=== PATIENT | male | born 1970 | race Caucasian/White ===

== ENCOUNTER 2024-12-21 09:41 | Emergency (ER) | payer OTHER, SELFPAY ==
[2024-12-21 09:42] VITALS: BP 130/78; PULSE 89; RESP 16; TEMP 36.7; O2SAT 98; BMI 28.6
[2024-12-21 09:54] VITALS: BP 130/78; PULSE 89; RESP 16; TEMP 37; O2SAT 98
--- NOTE | 2024-12-21 09:55 | EX.ED.DYSGE1 ---
HPI History of Present Illness Chief Complaint: Flank Pain Detail of Chief Complaint: Flank pain Informant: patient Narrative Narrative: Patient presents the emergency department complaint flank pain that started yesterday morning. Initially woke him up from sleep. Pain is intermittent and at times will be a 10 out of 10. Currently his pain is about a 3-4 out of 10. Earlier this morning was again severe. He had some nausea with it but no vomiting. Thinks maybe there may have been small amount of blood in his urine yesterday but is not sure. No history of kidney stones. Denies dysuria urgency or frequency. He denies any injury to his back. He has no medical history. Patient states yesterday the pain radiated to the front of the abdomen as well. PFSH PFSH Medical History no medical history Home Medications ?Medication ?Instructions ?Recorded ?Last Taken ?Type hydrocodone-acetaminophen 5-325mg 1 tab PO Q4H PRN PRN Pain 2 days 12/21/24 Unknown Rx 5mg-325mg #10 TABLETS naproxen 500 mg tablet 500 mg PO BID #14 tabs 12/21/24 Unknown Rx Allergy/AdvReac Type Severity Reaction Status Date / Time No Known Allergies Allergy Verified 12/21/24 09:42 Family History no significant family his Surgical History no surgical history Social History Smoking Status: Unknown if ever smoked ROS ROS ED Review of Systems ROS Unobtainable: other Constitutional Constitutional ED: Reports lethargy; Denies chills, fever(s), sweats or weight loss Eyes Eyes: Denies blurry vision, change in vision or diplopia ENT ENT ED: Denies rhinorrhea or sore throat Cardiovascular Cardiovascular: Denies chest pain, orthopnea or racing heartbeat Respiratory/Chest Respiratory/Chest: Denies cough, dyspnea, dyspnea on exertion, orthopnea or sputum Gastrointestinal Gastrointestinal: Reports abdominal pain; Denies diarrhea, nausea or vomiting Genitourinary Genitourinary ED: Denies dysuria, hematuria or urinary frequency Musculoskeletal Musculoskeletal: Reports back pain; Denies arthralgias, myalgias or neck pain Integumentary Denies abscess, Abrasions or rash Neurologic Neurologic: Denies headache(s) or weakness Psychiatric Psychiatric: Denies anxiety, depression or suicidal thoughts Endocrine Endocrinology: Denies polydipsia, polyphagia or polyuria Hematologic/Lymphatic Hematologic/Lymphatic: Denies easy bleeding, easy bruising or lymphadenopathy Allergic/Immunologic Allergic/Immunologic ED: Denies mouth swelling, tongue swelling or urticaria EXAM Physical Exam Const Vital Signs: 12/21/24 09:42 12/21/24 09:54 Temperature 98.0 F 98.6 F Temperature Source Oral Oral Pulse Rate 89 89 Respiratory Rate 16 16 Blood Pressure 130/78 H 130/78 H Blood Pressure Mean 95 95 Pulse Ox 98 98 Oxygen Delivery Method Room Air Room Air Positive well nourished and well developed General Appearance ED: well developed and NAD HEENT Reports TM's clear and moist mucous membranes normocephalic and atraumatic; Negative for trauma or tenderness Tympanic Membrane ED: Yes TM's clear Eyes PERRL and EOMs intact bilaterally General Eye ED: Negative for pale conjunctiva or scleral icterus Neck no lymphadenopathy, supple and no JVD General: Negative for tenderness Chest Wall inspection of chest normal and palpation of chest normal Chest: Negative for tenderness Resp normal respiratory effort and clear to auscultation bilaterally Effort and Inspection: Negative for respiratory distress or pain with movement Auscultation: Negative for rhonchi, wheezes or diminished lung sounds Cardio regular rate, regular rhythm, S1 normal heart sound, S2 normal heart sound and no murmurs Peripheral Pulses: pulses 2+ throughout GI normal to inspection, nondistended, normoactive bowel sounds, soft to palpation, non-distended and no masses GI Narrative: Mild tenderness palpation of the right lower quadrant with some guarding. There is no rebound, rigidity, or peritoneal signs. No mass palpated. Back/Spine no thoracic nor lumbar tenderness Back/Spine Narrative: Patient with CVA tenderness on the right. Extremity normal to inspection General Extremety ED: Negative for edema General Extremity: Negative for edema Neuro oriented x3, CN's II-XII intact bilaterally, no sensory deficits noted and gait normal Sensorium / Orientation: awake, alert, oriented to person, oriented to place and oriented to time Motor Exam: strength 5/5 throughout and strength abnormal Psych mental status grossly normal Skin no rashes or lesions noted and no wounds MDM MDM MDM Narrative Medical decision making narrative: Patient presents with mostly right-sided flank pain but describes some discomfort on the left as well. In the differential would be musculoskeletal back pain versus kidney stone versus UTI versus other acute intra-abdominal process. Patient has not anything for pain currently. I do not establish. CBC with differential, 7.5 with hemoglobin 14 and platelet count 214. Chemistries unremarkable. BUN 11 and creatinine 0.81. Urinalysis showed 0-5 RBCs but no signs of infection. CT scan of the abdomen pelvis shows right urolithiasis with a 4.3 mm stone in the midportion of the right ureter with mild hydroureter and hydronephrosis. Initially patient did not want thing for pain. However he did agree to some IV Toradol. Will send home with urine strainers as well as a prescription for naproxen and a few [place] for pain. Will refer to urology for follow-up. Based on the size of the stone being under 5 mm should typically pass without intervention. He is advised to return if worsening pain, fever, vomiting, or condition should worsen anyway. Have given you referral to urology for follow-up. Lab Data Attestation: I reviewed the patient's lab results. Labs: Laboratory Results - last 24 hr 12/21/24 12/21/24 10:03 10:21 WBC 7.5 RBC 4.39 L Hgb 14.1 Hct 40.7 MCV 92.7 MCH 32.1 H MCHC 34.6 RDW Std Deviation 41.5 RDW Coeff of Cecilia 12.0 Plt Count 214 MPV 9.2 Immature Gran % (Auto) 0.300 Neut % (Auto) 62.1 Lymph % (Auto) 24.1 Stewart % (Auto) 10.0 Eos % (Auto) 2.7 Baso % (Auto) 0.8 Absolute Neuts (auto) 4.7 Absolute Lymphs (auto) 1.80 Nucleated RBC % 0 Sodium 139 Potassium 3.8 Chloride 103 Carbon Dioxide 25.8 Anion Gap 10 BUN 11 Creatinine 0.81 Estim Creat Clear Calc 109.94 Est GFR (MDRD) Non-Af 106 BUN/Creatinine Ratio 13.3 Glucose 133 H Calcium 8.9 Urine Color Yellow Urine Clarity Clear Urine pH 6.0 Ur Specific Robbins 1.015 Urine Protein 15 H Urine Glucose (UA) Normal Urine Ketones 5 H Urine Occult Blood 150 H Urine Nitrite Negative Urine Bilirubin Negative Urine Urobilinogen Normal Ur Leukocyte Esterase Negative Urine RBC 0-5 SEEN Urine WBC 0 SEEN Ur Squamous Epith Cells 0-5 SEEN Urine Bacteria 0 SEEN Urine Mucus 0 SEEN Radiography Diagnostic Testing: Clinical Impression(s) from Imaging Studies Abdomen/Pelvis CT 12/21/24 10:14 IMPRESSION: Hepatomegaly. Nonobstructive bilateral intrarenal calculi. Mild degree of right hydronephrosis and proximal right ureteral dilatation due to a 4.3 mm calculus in the midportion of the right ureter. Reading Location: [place] [id number] Discharge Plan Triage Chief Complaint: Flank Pain ED Provider: Vlad Jimenez Dx/Rx/DC Orders Clinical Impression: Urolithiasis Instructions: ED Kidney Stone with Pain Prescriptions: New hydrocodone-acetaminophen 5-325 mg tablet 1 tab PO Q4H PRN PRN (Reason: Pain) 2 Days Qty: 10 0RF naproxen 500 mg tablet 500 mg PO BID Qty: 14 0RF Primary Care Provider: Care Physician,No Primary Referrals: Jose Lam MD [Med Staff - Active Staff] - 3-5 Days if not improving NOT,DEFINED [Non-Staff] - Print Language: Mosotho Disposition Disposition: Home, Self Care
--- NOTE | 2024-12-21 10:14 | CT_ITS ---
PROCEDURE: ABDOMEN/PELVIS WITHOUT CONT 12/21/2024 REASON FOR EXAM: RIGHT FLANK PAIN TECHNIQUE: Abdomen and pelvis CT without intravenous contrast. Noncontrast technique limits evaluation of the abdominal and pelvic viscera. Coronal and Sagittal reconstruction series were provided. One or more dose reduction techniques were used (e.g., Automated exposure control, adjustment of the mA and/or kV according to patient size, use of iterative reconstruction technique). Dose report: CTDI L volume: 7.91 mGy. DLP: 426.88 PATIENT PREPARATION: Per protocol ORAL CONTRAST TYPE: None. COMPARISON: None FINDINGS: Lung bases: Unremarkable Liver: Hepatomegaly. Gallbladder: Unremarkable Spleen: Unremarkable Pancreas: Normal size. No surrounding inflammation. Adrenals: Unremarkable Kidneys: Mild degree of right hydronephrosis. Tiny nonobstructive bilateral intrarenal calculi more prominent on the right side. Minimally dilated proximal right ureter due to a 4.3 mm calculus in the midportion of the right ureter. Bladder: The urinary bladder is empty. Bowel: Colonic diverticulosis without diverticulitis. Appendix: Unremarkable Lymph nodes: Unremarkable. Vasculature: Mild diffuse atherosclerotic calcifications are noted. Peritoneum / Retroperitoneum: No retroperitoneal lymph nodes. Bones: Unremarkable CT/Abdomen/Pelvis without Cont IMPRESSION: Hepatomegaly. Nonobstructive bilateral intrarenal calculi. Mild degree of right hydronephrosis and proximal right ureteral dilatation due to a 4.3 mm calculus in the midportion of the right ureter. Reading Location: [place] [id number]
[2024-12-21 10:16] LABS: Absolute Neutrophil Count 4.7 X10^3/uL (2.0-7.7); Basophil# 0.06 X10^3/uL; Basophil% 0.8 % (0-1); Eosinophils% 2.7 % (0-5); Hematocrit 40.7 % (40-54); Hemoglobin 14.1 g/dL (13.0-16.5); Lymphocyte % 24.1 % (19-41); Mean Corp Hgb Conc 34.6 g/dL (32-36); Mean Corpuscular Hgb 32.1 pg (27.0-32.0); Mean Corpuscular Volume 92.7 fL (80-94); Mean Platelet Vol. 9.2 fl (6.2-12.0); Monocyte# 0.75 X10^3/uL; NRBC Flagged by Analyzer 0 % (0-5); Neutrophil # 4.65 X10^3/uL (2.7-7.7); Neutrophil % 62.1 % (47-70); Platelet Count 214 K/mm3 (150-450); RBC Distribution Width SD 41.5 fl (35.1-43.9); Red Blood Count 4.39 M/mm3 (4.6-6.2); White Blood Count 7.5 K/mm3 (4.4-11.0)
[2024-12-21 10:30] LABS: Bacteria 0 SEEN /hpf (None Seen); Mucous, Urine 0 SEEN /hpf (<or=2+); White Blood Cells 0 SEEN /hpf (0-5)
[2024-12-21 10:32] LABS: Color, Urine Yellow (Yellow); Glucose, Dipstick Normal (Normal); Ketone-Dipstick 5 mg/dl (Negative); Leukocyte Esterase-Dipstick Negative /ul (Negative); Nitrite-Dipstick Negative (Negative); Occult Blood-Urine 150 /ul (Negative); Protein-Dipstick 15 mg/dl (Negative); Specific Gravity, Urine 1.015 (1.002-1.030); Urine Bilirubin Dipstick Negative (Negative); Urine Clarity Clear (Clear); Urine Urobilinogen Normal (Normal)
[2024-12-21 10:40] LABS: Red Blood Cells-Urine 0-5 SEEN /hpf (0-5); Squamous Epithelial Cells - UA 0-5 SEEN /hpf (0-5)
[2024-12-21 10:44] LABS: Anion Gap 10 (5-15); BUN 11 mg/dL (4-19); BUN/Creat Ratio 13.3 RATIO (10-20); Calcium,Total 8.9 mg/dL (7.6-11.0); Carbon Dioxide 25.8 mmol/L (21.0-32.0); Chloride 103 mmol/L (98-108); Creatinine, Serum 0.81 mg/dL (0.70-1.20); EST Glomerular Filtration Rate 106 (>60); Estimated Creatinine Clearance 109.94 ml/min (50-250); Glucose 133 mg/dL (70-99); Potassium 3.8 mmol/L (3.3-5.1); Sodium Level 139 mmol/L (133-145)
[2024-12-21 10:46] VITALS: BP 130/78; PULSE 89; RESP 16; TEMP 37; O2SAT 98
[2024-12-21] MEDS: Ketorolac 15 MG/ML Vial IV (10:56)
== END 2024-12-21 10:58 | disposition home or self-care (01) ==
PROVIDERS: Emergency Provider Emergency Medicine; Visit Provider Emergency Medicine
DX: N13.2 Hydronephrosis with renal and ureteral calculous obstruction (principal); N13.4 Hydroureter
CPT/HCPCS: 74176; 80048; 81001; 85025; 96374; 99282; A4216

== ENCOUNTER → 2025-01-24 | Outpatient (CLI) | payer OTHER, SELFPAY ==
--- NOTE | 2025-01-24 15:59 | RAD_ITS ---
EXAM: XR Abdomen, 1 View CLINICAL INDICATION: CALCULUS OF URETER TECHNIQUE: Frontal supine view of the abdomen/pelvis. COMPARISON: No relevant prior studies available. FINDINGS: GASTROINTESTINAL TRACT: Fecal retention in the colon consistent with constipation. No dilation. BONES/JOINTS: Unremarkable. No acute fracture. OTHER FINDINGS: 4 mm calculus noted on recent CT dated 12/21/2024 appears to progress to the lower aspect. RAD/Abdomen Single View IMPRESSION: 1. Fecal retention in the colon consistent with constipation. 2. 4 mm calculus noted on recent CT dated 12/21/2024 appears to progress to th e lower aspect. Reading Location[facility]
--- NOTE | 2025-01-24 15:59 | RAD_ITS ---
EXAM: XR Abdomen, 1 View CLINICAL INDICATION: CALCULUS OF URETER TECHNIQUE: Frontal supine view of the abdomen/pelvis. COMPARISON: No relevant prior studies available. FINDINGS: GASTROINTESTINAL TRACT: Fecal retention in the colon consistent with constipation. No dilation. BONES/JOINTS: Unremarkable. No acute fracture. OTHER FINDINGS: 4 mm calculus noted on recent CT dated 12/21/2024 appears to progress to the lower aspect. RAD/Abdomen Single View IMPRESSION: 1. Fecal retention in the colon consistent with constipation. 2. 4 mm calculus noted on recent CT dated 12/21/2024 appears to progress to th e lower aspect. Reading Location[facility]
== END | disposition home or self-care (01) ==
PROVIDERS: Referring Provider Urology; Visit Provider Urology
DX: N20.1 Calculus of ureter (principal)
CPT/HCPCS: 74018

== ENCOUNTER 2025-01-26 13:30 | Day surgery (SDC) | payer OTHER, SELFPAY ==
[2025-01-26] VITALS (8 sets, daily range): BP systolic 105–113; BP diastolic 59–79; PULSE 83–87; RESP 16–18; TEMP 36.1–36.6; O2SAT 93–99; BMI 28.0
--- NOTE | 2025-01-26 07:05 | PCM.HP.STD ---
HPI - General General Date of Service: 01/26/25 Chief Complaint: Right kidney stone kidney stone HPI Narrative CHEPE MADISON, is a 54 M who presents for treatment of the kidney stone with ureteroscopy laser lithotripsy and stent placement on the [facility] Medical History Wears glasses Wears dentures Injury of head and neck Heartburn Shortness of breath on exertion Leg cramps Smoker Home Medications ?Medication ?Instructions ?Recorded ?Last Taken ?Type hydrocodone-acetaminophen 5-325mg 1 tab PO Q4H PRN PRN Pain 2 days 12/21/24 Unknown Rx 5mg-325mg #10 TABLETS naproxen 500 mg tablet 500 mg PO BID #14 tabs 12/21/24 Unknown Rx Allergy/AdvReac Type Severity Reaction Status Date / Time No Known Allergies Allergy Verified 01/25/25 11:48 Surgical History (Updated 01/25/25 @ 11:55 by Shilpa Foster) History of exploratory laparotomy Social History Smoking Status: Current every day smoker tobacco type: cigarettes
--- NOTE | 2025-01-26 13:51 | DCINST_ITS ---
Discharge Instructions DC O2, CPAP, BIPAP needs Home O2 Discharge instructions: No Dressing / Incision Discharge Activity: Return to Normal Activity and May Not Drive (while taking narcotic pain medications.) Dressing / Incision Call your doctor if you observe: Fever of 101 or Higher and Uncontrolled pain Follow Up Care Please Follow Up With: Jose Lam MD When: Call [phone] for an appointment Test Results: Test results from this visit will be discussed in further detail at your follow- up appointment, if applicable. Discharge Plan Admission Primary Reason for Your Visit: right ESWL Attending Provider: Jose Lam Primary Care Provider: Care Physician,No Primary Instructions Print Language: Icelandic Discharge Orders/Prescriptions Prescriptions: New ciprofloxacin HCl [Cipro] 500 mg tablet 500 mg PO BID Qty: 10 0RF oxycodone 5 mg tablet 5 mg PO Q6H PRN (Reason: pain) 3 Days Qty: 14 0RF Continued hydrocodone-acetaminophen 5-325 mg tablet 1 tab PO Q4H PRN PRN (Reason: Pain) 2 Days Qty: 10 0RF naproxen 500 mg tablet 500 mg PO BID Qty: 14 0RF Referrals / Follow Up: Jose Lam MD [Med Staff - Active Staff] - Care Physician,No Primary [Primary Care Provider] - Disposition Disposition (needs filled in before D/C Order can be placed): Home, Self Care
[2025-01-26] MEDS: Lactated Ringers 1,000 ML 15 ML IV (13:54)
--- NOTE | 2025-01-26 13:59 | PRE.ANES_ITS ---
ASA Classification* ASA Classification ASA Classification: 2 Assessment & Plan Anesthesia* Anesthesia Assessment Anesthesia Assessment: Discussed sedation and/or anesthesia options, risks, benefits, and alternatives with patient/parents/legal guardian/POA. Questions invited. The patient/parents/legal guardian/POA seems to understand and agrees to proceed with anesthesia plan. Reviewed the physical assessment, medical history, allergy history and patient home medications list prior to surgery/procedure/anesthetic and documented any changes. Performed airway and anesthesia risk assessments. Anesthesia Type Anesthesia Type: General History Source History Obtained from:: Patient and Chart Anesthesia Focused Assessment* Temperature: 97.1 F Pulse Rate: 86 Blood Pressure: 113/79 Respiratory Rate: 18 Pulse Ox: 97 Oxygen Delivery Method: Room Air Airway Assessment Mouth opens: >3 cm Mallampati Score: III Teeth Condition: Dentures (Full upper dentures are out.) and Missing (Patient has multiple missing teeth on the bottom. Rest are tight.) Neck Range of motion (ROM): Full ROM Labs Anesthesia Preop lab: CBC WBC 7.5 K/mm3 (4.4-11.0) 12/21/24 10:12/21/24 RBC 4.39 M/mm3 (4.6-6.2) L 12/21/24 10:12/21/24 Hgb 14.1 g/dL (13.0-16.5) 12/21/24 10:12/21/24 Hct 40.7 % (40-54) 12/21/24 10:12/21/24 Plt Count 214 K/mm3 (150-450) 12/21/24 10:12/21/24 CHEMISTRY Potassium 3.8 mmol/L (3.3-5.1) 12/21/24 10:12/21/24 Sodium 139 mmol/L (133-145) 12/21/24 10:12/21/24 BUN 11 mg/dL (4-19) 12/21/24 10:12/21/24 Creatinine 0.81 mg/dL (0.70-1.20) 12/21/24 10:12/21/24 Glucose 133 mg/dL (70-99) H 12/21/24 10:12/21/24 COAG Pre-Assessment Diagnosis/Proposed Procedure Planned Operative Procedure(s): RIGHT URETEROSCOPY ESWL Anesthesia History 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 When Was Last Pacemaker Check QUESTION #4 FULL TEXT: You/Your Family Experience fever (hyperthermia) with Anesthesia Last Oral Intake Last Oral intake: Last Oral Intake NPO since 13:00 01/26/25 13:50 Meds taken in AM with sips of No 01/26/25 13:50 water? Meds patient instructed to take am of surgery Any additional information?: Yes NPO since: 13:00 (Patient had 8 ounces of water at 1:00PM) Meds taken in AM with sips of water?: No PONV PONV - aircraft engine technician: PONV - aircraft engine technician Female No 01/25/25 11:49 HX of Motion Sickness No 01/25/25 11:49 HX of N/V After Surgery No 01/25/25 11:49 Non-Smoker No 01/25/25 11:49 Duration of Surgery greater Yes 01/25/25 11:49 than 60 minutes Number of Risk Factors 1 01/25/25 11:49 PONV Score Low Risk 01/25/25 11:49 Height & Weight Height & Weight: Anesthesia: Height & Weight Height 5 ft 7 in 01/26/25 13:50 Weight: 81.2 kg 01/26/25 13:50 Body Mass Index (BMI) 28.0 01/26/25 13:50 Respiratory Assessment Respiratory Assessment - aircraft engine technician: Respiratory Tract Infection Hx - aircraft engine technician Hx Respiratory Tract Infection No 01/25/25 11:49 STOP Sleep Apnea STOP Sleep Apnea - aircraft engine technician: STOP Sleep Apnea - aircraft engine technician Hx Hypertension No 01/25/25 11:49 Hx Sleep Apnea No 01/25/25 11:49 CPAP BIPAP Do you snore loudly (louder No 01/25/25 11:49 than talking or can be heard Do you often feel tired/ No 01/25/25 11:49 fatigued/ sleepy during daytime? Has anyone observed you stop No 01/25/25 11:49 breathing during sleep? STOP Results Negative 01/25/25 11:49 QUESTION #5 FULL TEXT : Do you snore loudly (louder than talking or can be heard through closed doors)? 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 confused, unrespo /Reproduction History /Reproductive History - aircraft engine technician: /Reproductive Hx- aircraft engine technician Hx Now No 01/25/25 11:49 Gestational Age (in weeks): EDC: Hx Hx Para Hx Section SAB No 01/25/25 11:49 Active Medications Active Medications: Current Medications Generic Name Dose Route Start Last Admin Trade Name Freq PRN Reason Stop Dose Admin Acetaminophen 650 mg 01/26/25 13:51 Acetaminophen 325 Mg Tablet PO Q4H PRN PRN Pain Score 1-5 Cefazolin Sodium 2 gm/ Sodium 110 mls @ 200 mls/hr 01/26/25 15:30 Chloride IV 01/26/25 16:02 INTRAOP ONE Lactated Ringer's 1,000 mls @ 15 mls/hr 01/26/25 13:45 01/26/25 13:54 IV 15 mls/hr .Q48H HAYDEE Administration Lactated Ringer's 1,000 mls @ 100 mls/hr 01/26/25 14:00 IV .Q10H HAYDEE Metoclopramide HCl 10 mg 01/26/25 13:51 Metoclopramide 10 Mg/2 Ml Vial IV X1 PRN NAUSEA/VOMITING Ondansetron HCl 4 mg 01/26/25 13:51 Ondansetron 4 Mg/2 Ml Vial IV X1 PRN NAUSEA Oxycodone HCl 5 - 10 mg 01/26/25 13:51 Oxycodone 5 Mg Tablet PO Q6H PRN PRN Pain Score 4-10 PFSH Medical History Wears glasses Wears dentures Injury of head and neck Heartburn Shortness of breath on exertion Leg cramps Smoker Home Medications ?Medication ?Instructions ?Recorded ?Last Taken ?Type hydrocodone-acetaminophen 5-325mg 1 tab PO Q4H PRN PRN Pain 2 days 12/21/24 Unknown Rx 5mg-325mg #10 TABLETS naproxen 500 mg tablet 500 mg PO BID #14 tabs 12/21 Unknown Rx ciprofloxacin HCl 500 mg tablet 500 mg PO BID #10 tabs 01/26/25 Unknown Rx (Cipro) oxycodone 5 mg tablet 5 mg PO Q6H PRN pain 3 days #14 01/26/25 Unknown Rx tabs Allergy/AdvReac Type Severity Reaction Status Date / Time No Known Allergies Allergy Verified 01/26/25 13:50 Surgical History (Updated 01/25/25 @ 11:55 by Shilpa Foster) History of exploratory laparotomy Social History Smoking Status: Current every day smoker tobacco type: cigarettes Review of Systems (Anesthesia) ROS Narrative System reviewed and no additional complaints, except as documented.
--- NOTE | 2025-01-26 14:48 | OP.PCM_ITS ---
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: No Type of Anesthesia: General RN Documented Start/Stop Times: Operation Date: 01/26/25 15:30 Case Time Into Pre-Op 01/26/25 13:40 Out of Pre-Op 01/26/25 14:08 Anesthesia Start 01/26/25 14:12 Into Room 01/26/25 14:12 Procedure Start 01/26/25 14:22 Procedure Start Time: 14:22 Procedure Stop Time: 15:12 Select all DRAINS/GRAFTS/IMPLANTS that apply: None Estimated Blood Loss: None Specimen collected: No Description of surgery: This 54-year-old male presents to the hospital for treatment of a kidney stone KUB was reviewed that there was a possible stone in the distal ureter but then I took him to surgery and then under fluoroscopy I was not convinced that this was a stone the possible phlebolith so the penis was prepped and draped you sterile fashion went in the bladder with the flexible ureteroscope was able to get into the ureter with the wire and then went up the ureter and then as went up the ureter ended up pushing the stone up into the kidney and then the stone over then localized in the kidney I then remove the ureteroscope we pushed the stone the F2 focal point in the machine and then proceeded with shockwave lithotripsy we delivered a total of 2000 shockwaves to the stone and the stone appeared to break up into the small little fragments we did not increase the power too much and then broke the stone into little pieces no stent was placed patient anesthetic was reversed and taken back to the PACU in good condition after successful treatment of the kidney stone with Lithotripsy we did have to use ureteroscopy to locate the the stone since it was hard to locate under fluoroscopy alone. Surgical Findings: Stone found in the kidney and shockwave lithotripsy to the stone Complications Complications: No Admit VTE Documentation VTE Present on Admission: No VTE Mechan Device Prophylaxis: SCD's VTE Pharm Prophylaxis ordered?: No
--- NOTE | 2025-01-26 15:22 | PCM.POST.ANE ---
Anesthesia: Postop Eval I Current Vital Signs Temperature: 97 F Pulse Rate: 84 Blood Pressure: 108/66 Respiratory Rate: 16 Pulse Ox: 99 Oxygen Delivery Method: Room Air Assessment Airway patent: Yes Spontaneous unlabored respirations: Yes Mental status: Awake and Calm nausea: No Vomiting: No Anesthesia Complication: No Fluid Hydration Crystalloid volume administer (ml): 800 Total IV fluid infused: 800 Progress Note Anesthesia document: Postop Eval 1 completed: Yes
[2025-01-26] MEDS: Ketorolac 30 MG/ML Syringe IV (15:32)
--- NOTE | 2025-01-26 19:19 | POSTOPAN2_ITS ---
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 SOCIAL WORKER.[email or web address] Vomiting No 01/26/25 15:23 MARRIAGE AND FAMILY SOCIAL WORKER.[email or web address] Anesthesia Postop Eval I: Fluid Summary Crystalloid volume administer 800 01/26/25 15:23 MARRIAGE AND FAMILY SOCIAL WORKER.[email or web address] (ml) Colloids volume administered ( ml) Blood Product volume administered (ml) Total IV fluid infused 800 01/26/25 15:23 MARRIAGE AND FAMILY SOCIAL WORKER.ALINEOBDhruv Anesthesia Postop Eval I: Summary Notes Anesthesia Complication No 01/26/25 15:23 MARRIAGE AND FAMILY SOCIAL WORKER.[email or web address] Anesthesia Complication Comment: Post-operative progress note Anesthesia: Postop Eval II Evaluation Mental status: Awake and Calm Pain Level: 1 nausea: No Vomiting: No Complications Anesthesia Complication: No
--- NOTE | 2025-01-26 19:19 | PCM.POSTANE2 ---
Anesthesia Postop Eval I Sum Postop Eval Completion status Anesthesia document: Postop Eval 1 completed: Yes Anesthesia Postop Eval I Summary Anesthesia Postop Eval I Summary: Anesthesia Postop Eval I: Assessment Summary Airway patent Yes 01/26/25 15:23 [email or web address] [email or web address] Spontaneous unlabored Yes 01/26/25 15:23 [email or web address] [email or web address] respirations Mental status Awake,Calm 01/26/25 15:23 [email or web address] [email or web address] nausea No 01/26/25 15:23 TRAFFIC [email or web address] Vomiting No 01/26/25 15:23 [email or web address] [email or web address] Anesthesia Postop Eval I: Fluid Summary Crystalloid volume administer 800 01/26/25 15:23 [email or web address] [email or web address] (ml) Colloids volume administered ( ml) Blood Product volume administered (ml) Total IV fluid infused 800 01/26/25 15:23 TRAFFIC [email or web address] Anesthesia Postop Eval I: Summary Notes Anesthesia Complication No 01/26/25 15:23 TRAFFIC [email or web address] Anesthesia Complication Comment: Post-operative progress note Anesthesia: Postop Eval II Evaluation Mental status: Awake and Calm Pain Level: 1 nausea: No Vomiting: No Complications Anesthesia Complication: No
== END 2025-01-26 16:25 | disposition home or self-care (01) ==
LOC: SDC 13:31 → AC 13:33
PROVIDERS: Referring Provider Urology; Visit Provider Urology
PROC: 0TJ98ZZ Inspection of Ureter, Via Natural or Artificial Opening Endoscopic (ICD-10-PCS; CPT 52352; principal; 2025-01-26 15:20)
DX: N20.0 Calculus of kidney (principal); F17.210 Nicotine dependence, cigarettes, uncomplicated; Z79.891 Long term (current) use of opiate analgesic; Z79.899 Other long term (current) drug therapy
CPT/HCPCS: 52352; 00873; C1769; J2405

== ENCOUNTER 2025-02-23 06:24 | Emergency (ER) | payer OTHER, SELFPAY ==
[2025-02-23 06:24] VITALS: BP 133/81; PULSE 83; RESP 16; TEMP 36.4; O2SAT 97; BMI 28.4
--- NOTE | 2025-02-23 06:52 | CT_ITS ---
PROCEDURE: ABDOMEN/PELVIS WITHOUT CONT 02/23/2025 REASON FOR EXAM: LEFT FLANK PAIN TECHNIQUE: ABDOMEN/PELVIS WITHOUT CONT Noncontrast technique limits evaluation of the abdominal and pelvic viscera. Coronal and Sagittal reconstruction series were provided. One or more dose reduction techniques were used (e.g., Automated exposure control, adjustment of the mA and/or kV according to patient size, use of iterative reconstruction technique). RADIATION DOSE SUMMARY: CTDlvol: 7.25 mGy DLP: 387.59 mGycm COMPARISON: CT abdomen and pelvis December 21, 2024 FINDINGS: Lung bases: Clear. Liver: Unremarkable. Gallbladder: Unremarkable. No biliary dilation. Spleen: Unremarkable. Pancreas: Unremarkable. Adrenals: Unremarkable. Kidneys: Coin 2 mm stones at the middle and lower pole of the left kidney. A 4 mm obstructing stone in the left ureter proximally at L3 level causing severe left hydronephrosis. No right hydronephrosis. Bladder: Unremarkable. Reproductive Organs: Unremarkable Bowel: No bowel wall thickening or bowel obstruction. Left and sigmoid colon diverticulosis with no evidence of acute diverticulitis. Appendix: Normal. Lymph nodes: No lymphadenopathy. Vasculature: No aneurysm. Peritoneum / Retroperitoneum: No free air or free fluid. Bones: No acute bony abnormalities. CT/Abdomen/Pelvis without Cont IMPRESSION: Coin 2 mm stones at the middle and lower pole of the left kidney. A 4 mm obstructing stone in the left ureter proximally at L3 level causing xavier re left hydronephrosis. Left sigmoid colon diverticulosis with no evidence of acute diverticulitis. Reading Location: [id number]
[2025-02-23] MEDS: Ketorolac 30 MG/ML Syringe IV (06:58)
[2025-02-23] MEDS: 0.9% Normal Saline (1000mL) 1,000 ML 999 ML IV (06:59)
[2025-02-23 07:07] LABS: Hematocrit 38.7 % (40-54); Hemoglobin 13.3 g/dL (13.0-16.5); Immature Granulocytes Count 0.080 X10^3/uL (0.0-0.0); Mean Corp Hgb Conc 34.4 g/dL (32-36); Mean Corpuscular Volume 94.2 fL (80-94); Mean Platelet Vol. 9.2 fl (6.2-12.0); NRBC Flagged by Analyzer 0 % (0-5); Platelet Count 247 K/mm3 (150-450); RBC Distribution Width CV 11.8 % (11.6-14.6); RBC Distribution Width SD 40.7 fl (35.1-43.9); Red Blood Count 4.11 M/mm3 (4.6-6.2); White Blood Count 11.4 K/mm3 (4.4-11.0)
--- OUTSIDE RECORDS SUMMARY | 2025-02-23 07:10 | XMS RPT_ITS | CCD ---
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 Vlad Jimenez DO Emergency Provider Care Physician, No Primary Primary Care Provider Unavailable Dr. Vlad Jimenez DO Attending Provider Genaro WALLACE, Dr. Jose Freeman Attending Provider Genaro WALLACE, Dr. Jose Freeman Referring Provider Jose Lam Attending Unavailable Jose Lam Referring Unavailable Care Physician, No Primary Primary Care Unava ilable Jose Lam Attending Unavailable Jose Lam Referring Unavailable Care Physician, No Primary Primary Care Unava ilable Vlad Jimenez Attending Unavailable Care Physician, No Primary Primary Care Unava ilable Medications Current Medications Medication Drug Class(es) Dates Sig (Normalized) Sig (Original) acetaminophen 325 mg / HYDROcodone bitartrate 5 mg oral tablet (3 sources) Opioid Agonist Start: 12-21-2024 take 1 tablet by mouth every four hours as needed for pain Hydrocodone-Acetam inophen 5-325 mg tablet Active 1 {tbl} PO EVERY 4 HOURS NEEDED as needed for Pain 10 2 0 December 21, 2024 Urolithiasis Urinary calculus, unspecified ciprofloxacin 500 mg oral tablet (2 sources) Quinolone Antimicrobial Start: 01-26-2025 take 1 tablet by mouth twice daily Ciprofloxacin Hcl (Cipro) 500 mg tablet Active 500 mg PO TWICE A DAY 10 0 January 26, 2025 12:00am naproxen 500 mg oral tablet (3 sources) Nonsteroidal Anti-inflammatory Drug Start: 12-21-2024 take 1 tablet by mouth twice daily Naproxen 500 mg tablet Active 500 mg PO TWICE A DAY 14 0 December 21, 2024 12:00am oxyCODONE hydrochloride 5 mg oral tablet (2 sources) Opioid Agonist Start: 01-26-2025 take 1 tablet by mouth every six hours as needed for pain Oxycodone 5 mg tablet Active 5 mg PO EVERY 6 HOURS as needed for pain 14 3 0 January 26, 2025 Calculus of ureter Calculus of ureter Problems Problem Classification Problem Date Documented Da te Episodic/Chronic Abdominal pain (1 source) Unspecified abdominal pain; Translations: [Unspecified abdominal pain] Onset: 01-25-2025 Episodic Calculus of urinary tract (7 sources) Urolithiasis ; Translations: [Urinary calculus, unspecified] Onset: 01-29-2025 12-21-2024 Episodic Results Test Name Value Interpretation Reference Range Facility Discharge Instructionon 01-09 Discharge Instruction [facility] Medical Records Department [address] [place] [address] Instructions for Home/Discharge Instructions 01/26/25 1351 MR#: [id number] Acct: [id number] Name: CHEPE MADISON Rep #: [id number] : 1970 54 From: Jose Lam MD PCP: Tara Physician,No Primary Status:REG SDC Discharge Instructions DC O2, CPAP, BIPAP needs Home O2 Discharge instructions: No Dressing / Incision Discharge Activity: Return to Normal Activity and May Not Drive (while taking narcotic pain medications.) Dressing / Incision Call your doctor if you observe: Fever of 101 or Higher and Uncontrolled pain Follow Up Care Please Follow Up With: Jose Lam MD When: Call [phone] for an appointment Test Results: Test results from this visit will be discussed in further detail at your follow-up appointment, if applicable. Discharge Plan Admission Primary Reason for Your Visit: right ESWL Attending Provider: Jose Lam Primary Care Provider: Care Physician,No Primary Instructions Print Language: Nepalese Discharge Orders/Prescription s Prescriptions: New ciprofloxacin HCl [Cipro] 500 mg tablet 500 mg PO BID Qty: 10 0RF oxycodone 5 mg tablet 5 mg PO Q6H PRN (Reason: pain) 3 Days Qty: 14 0RF Continued hydrocodone-acetami nophen 5-325 mg tablet 1 tab PO Q4H PRN PRN (Reason: Pain) 2 Days Qty: 10 0RF naproxen 500 mg tablet 500 mg PO BID Qty: 14 0RF Referrals / Follow Up: Jose Lam MD [Med Staff - Active Staff] - Care Physician,No Primary [Primary Care Provider] - Disposition Disposition (needs filled in before D/C Order can be placed): Home, Self Care 01/26/25 1352 Jose Lam MD CC: No Primary Care Physician Signed [facility] MR/POSTOP.ANE 01-26-2025 [facility] Medical Records Department [address] [place] [address] Anesthesia Postop Eval I 01/26/25 1522 MR#: [id number] Acct: [id number] Name: CHEPE MADISON Rep #: [id number] : 1970 54 From: Leidy Rock CRNA PCP: Care Physician,No Primary Status:REG SDC Y Race: C Location: [place] [address] Anesthesia: Postop Eval I Current Vital Signs Temperature: 97 F Pulse Rate: 84 Blood Pressure: 108/66 Respiratory Rate: 16 Pulse Ox: 99 Oxygen Delivery Method: Room Air Assessment Airway patent: Yes Spontaneous unlabored respirations: Yes Mental status: Awake and Calm nausea: No Vomiting: No Anesthesia Complication: No Fluid Hydration Crystalloid volume administer (ml): 800 Total IV fluid infused: 800 Progress Note Anesthesia document: Postop Eval 1 completed: Yes 01/26/25 152 Date Leidy Rock CRNA Cosigner Signature: Date CC: Signed [facility] MR/[id number] 01-26-2025 MR/POSTOPAN2 [facility] Medical Records Department [address] [place] [address] Anesthesia Postop Eval II 01/26/25 1919 MR#: [id number] Acct: [id number] Name: CHEPE MADISON #: [id number] : 1970 54 From: Richie Macedo MD PCP: Care Physician,No Primary Status:[facility] Y Race: C Location: [facility] Anesthesia Postop Eval I Sum Postop Eval Completion status Anesthesia document: Postop Eval 1 completed: Yes Anesthesia Postop Eval I Summary Anesthesia Postop Eval I Summary: Anesthesia Postop Eval I: Assessment Summary Airway patent Yes 01/26/25 15:23 SUPERVISOR/PORT DIRECTOR.SKOBY Spontaneous unlabored Yes 01/26/25 15:23 SUPERVISOR/PORT DIRECTOR.SKOBY respirations Mental status Awake,Calm 01/26/25 15:23 SUPERVISOR/PORT DIRECTOR.SKOBY nausea No 01/26/25 15:23 SUPERVISOR/PORT DIRECTOR.SKOBY Vomiting No 01/26/25 15:23 SUPERVISOR/PORT DIRECTOR.SKOBY Anesthesia Postop Eval I: Fluid Summary Crystalloid volume administer 800 01/26/25 15:23 SUPERVISOR/PORT DIRECTOR.SKOBY (ml) Colloids volume administered ( ml) Blood Product volume administered (ml) Total IV fluid infused 800 01/26/25 15:23 SUPERVISOR/PORT DIRECTOR.SKOBY Anesthesia Postop Eval I: Summary Notes Anesthesia Complication No 01/26/25 15:23 SUPERVISOR/PORT DIRECTOR.SKOBY Anesthesia Complication Comment: Post-operative progress note Anesthesia: Postop Eval II Evaluation Mental status: Awake and Calm Pain Level: 1 nausea: No Vomiting: No Complications Anesthesia Complication: No 01/26/25 191 Date Richie Macedo MD [facility] Signature: Date CC: Signed Normal [facility] Operative Reporton 5 Operative Report [facility] Medical Records Department [address] [place] [address] Operative Report 01/26/25 1448 MR#: [id number] Acct: [id number] Name: CHEPE MADISON Rep #: [id number] : 1970 54 From: Jose Lam MD PCP: Care Physician,No Primary Status:REG [facility] Location: [place] [address] Operative Report (Standard) Operative Information Date of Procedure: 01/26/25 Pre-Operative Diagnosis: Right kidney stone Post-Operative Diagnosis: The same Surgery/Procedure Performed: Right ureteroscopy, right extracorporeal shockwave lithotripsy funeral pre arrangement specialist: No Type of Anesthesia: General RN Documented Start/Stop Times: Operation Date: 01/26/25 15:30 Case Time Into Pre-Op 01/26/25 13:40 Out of Pre-Op 01/26/25 14:08 Anesthesia Start 01/26/25 14:12 Into Room 01/26/25 14:12 Procedure Start 01/26/25 14:22 Procedure Start Time: 14:22 Procedure Stop Time: 15:12 Select all DRAINS/GRAFTS/IMPLA NTS that apply: None Estimated Blood Loss: None Specimen collected: No Description of surgery: This 54-year-old male presents to the hospital for treatment of a kidney stone KUB was reviewed that there was a possible stone in the distal ureter but then I took him to surgery and then under fluoroscopy I was not convinced that this was a stone the possible phlebolith so the penis was prepped and draped you sterile fashion went in the bladder with the flexible ureteroscope was able to get into the ureter with the wire and then went up the ureter and then as went up the ureter ended up pushing the stone up into the kidney and then the stone over then localized in the kidney I then remove the ureteroscope we pushed the stone the F2 focal point in the machine and then proceeded with shockwave lithotripsy we delivered a total of 2000 shockwaves to the stone and the stone appeared to break up into the small little fragments we did not increase the power too much and then broke the stone into little pieces no stent was placed patient anesthetic was reversed and taken back to the PACU in good condition after successful treatment of the kidney stone with Lithotripsy we did have to use ureteroscopy to locate the the stone since it was hard to locate under fluoroscopy alone. Surgical Findings: Stone found in the kidney and shockwave lithotripsy to the stone Complications Complications: No Admit VTE Documentation VTE Present on Admission: No VTE Mechan Device Prophylaxis: SCD's VTE Pharm Prophylaxis ordered?: No 01/26/25 1512 Cosigner Signature (if applicable): CC: Dr. Jose Lam MD; No Primary Care Physician Signed Normal [facility] Abdomen Single Viewon 2024 Abdomen Single View [facility] Imaging Services [address] [place] [address] Abdomen Single View MR#: [id number] Acct: [id number] Name: CHEPE MADISON Doris Rep #: [id number] : 1970 M 54 From: Claus Rene MD PCP: Care Physician,No Primary Status: REG CLI Study: Abdomen Single View Date of Exam: 01/24/25 Exam# [id number] Ordering Dr: Jose Lam MD EXAM: XR Abdomen, 1 View CLINICAL INDICATION: CALCULUS OF URETER TECHNIQUE: Frontal supine view of the abdomen/pelvis. COMPARISON: No relevant prior studies available. FINDINGS: GASTROINTESTINAL TRACT: Fecal retention in the colon consistent with constipation. No dilation. BONES/JOINTS: Unremarkable. No acute fracture. OTHER FINDINGS: 4 mm calculus noted on recent CT dated 12/21/2024 appears to progress to the lower aspect. RAD/Abdomen Single View IMPRESSION: 1. Fecal retention in the colon consistent with constipation. 2. 4 mm calculus noted on recent CT dated 12/21/2024 appears to progress to the lower aspect. Reading Location: [facility] CC: Dr. Jose Lam MD; No Primary Care Physician Country Director: Signed Normal [facility] Abdomen/Pelvis without Conto n 12-21-2024 Abdomen/Pelvis without Cont [facility] Imaging Services [address] [place] [address] Abdomen/Pelvis without Cont MR#: [id number] Acct: [id number] Name: CHEPE MADISON Rep #: [id number] : 1970 M 54 From: Javier farris MD PCP: NOT,DEFINED Status: PRE ER Study: Abdomen/Pelvis without Cont Date of Exam: 12/10 09/05 Exam# [id number] Ordering Dr: Vlad Jimenez DO PROCEDURE: ABDOMEN/PELVIS WITHOUT CONT 12/21/2024 REASON FOR EXAM: RIGHT FLANK PAIN TECHNIQUE: Abdomen and pelvis CT without intravenous contrast. Noncontrast technique limits evaluation of the abdominal and pelvic viscera. Coronal and Sagittal reconstruction series were provided. One or more dose reduction techniques were used (e.g., Automated exposure control, adjustment of the mA and/or kV according to patient size, use of iterative reconstruction technique). Dose report: CTDI L volume: 7.91 mGy. DLP: 426.88 PATIENT PREPARATION: Per protocol ORAL CONTRAST TYPE: None. COMPARISON: None FINDINGS: Lung bases: Unremarkable Liver: Hepatomegaly. Gallbladder: Unremarkable Spleen: Unremarkable Pancreas: Normal size. No surrounding inflammation. Adrenals: Unremarkable Kidneys: Mild degree of right hydronephrosis. Tiny nonobstructive bilateral intrarenal calculi more prominent on the right side. Minimally dilated proximal right ureter due to a 4.3 mm calculus in the midportion of the right ureter. Bladder: The urinary bladder is empty. Bowel: Colonic diverticulosis without diverticulitis. Appendix: Unremarkable Lymph nodes: Unremarkable. Vasculature: Mild diffuse atherosclerotic calcifications are noted. Peritoneum / Retroperitoneum: No retroperitoneal lymph nodes. Bones: Unremarkable CT/Abdomen/Pelvis without Cont IMPRESSION: Hepatomegaly. Nonobstructive bilateral intrarenal calculi. Mild degree of right hydronephrosis and proximal right ureteral dilatation due to a 4.3 mm calculus in the midportion of the right ureter. Reading Location: [place] [address] CC: DEFINED NOT; Dr. Vlad Jimenez DO Country Director: Signed Normal [facility] Absolute lymphocyte countOrd ered By: Vlad Jimenez on 12-21-2024 Lymphocytes Auto (Unsp spec) [#/Vol] 1.80 10*3/uL 0.83-4.[address] [facility] Absolute neutrophil countOrd ered By: Vlad Jimenez on 12-21-2024 Neutrophils (Bld) [#/Vol] 4.7 10*3/uL 2.0-7.[address] [facility] Anion gap in Serum or Plasma Ordered By: Vlad Jimenez on 06-12-2025 Anion gap [Moles/Vol] 10 mmol/L 5-15 [facility] Automated lymphocyte count a s percentage of total leukocytesOrdered By: Remus Ungkedar on 12-21-2024 Lymphocytes/100 WBC Auto (Unsp spec) 24.1 % - [facility] BUN/creatinine ratioOrdered By: Remus Ungur on 12-21-2024 Urea nitrogen/Creatinine [Mass ratio] 13.3 mg/mg 04-[address] [facility] Basic Metabolic Profile (BMP )on 12-21-2024 BUN/CRE 13.3 RATIO Normal 04-[address] [facility] Comment on above: Performed By: #### L 100.0100, L500.2500 #### [facility] Laboratory [address] [place], [address] Calcium [Mass/Vol] 8.9 mg/dL Normal 7.6-11.0 [facility] Comment on above: Performed By: #### L 100.0100, L500.2500 #### [facility] [address] [place], [address] Chloride [Moles/Vol] 103 mmol/L Normal 98-108 [facility] Comment on above: Performed By: #### L 100.0100, L500.2500 #### [facility] [address] [place], [address] CO2 [Moles/Vol] 25.8 mmol/L Normal 21.0-32.[address] [facility] Comment on above: Performed By: #### L 100.0100, L500.2500 #### [facility] [address] [place], [address] Creatinine [Mass/Vol] 0.81 mg/dL Normal 0.70-1.20 [facility] Comment on above: Performed By: #### L 100.0100, L500.2500 #### [facility] [address] [place], [address] ECRCL 109.94 ml/min Normal 50-[address] [facility] Comment on above: Performed By: #### L 100.0100, L500.2500 #### [facility] [address] [place], [address] GAP 10 Normal 5-[address] [facility] Comment on above: Performed By: #### L 100.0100, L500.2500 #### [facility] [address] [place], [address] GFR/1.73 sq M.predicted among non-blacks MDRD (S/P/Bld) [Vol rate/Area] 106 mL/min/{1.73_m2} Normal >[address] [facility] Comment on above: Result Comment: mL/m in/1.73m2 CKD-EPI Creatinine Equation (2020) Performed By: #### L 100.0100, L500.2500 #### [facility] [address] [place], [address] Glucose [Mass/Vol] 133 mg/dL High 70-99 [facility] Comment on above: Performed By: #### L 100.0100, L500.2500 #### [facility] [address] [place], [address] Potassium [Moles/Vol] 3.8 mmol/L Normal 3.3-5.1 [facility] Comment on above: Performed By: #### L 100.0100, L500.2500 #### [facility] [address] [place], [address] Sodium [Moles/Vol] 139 mmol/L Normal 133-145 [facility] Comment on above: Performed By: #### L 100.0100, L500.2500 #### [facility] [address] [place], [address] Urea nitrogen [Mass/Vol] 11 mg/dL Normal 4-[address] [facility] Comment on above: Performed By: #### L 100.0100, L500.2500 #### [facility] [address] [place], [address] Basophil percentageOrdered B y: Vlad Jimenez on 12-21-2024 Basophils/100 WBC (Bld) 0.8 % 0-1 [facility] Bilirubin Test strip Ql (U)O rdered By: Vlad Jimenez on 12-21-2024 Bilirubin Ql (U) Negative Negative [facility] CBC W/Diff, Automatedon 12-10 Absolute Lymph 1.80 X10 3/uL Normal 0.83-4.[address] [facility] Comment on above: Performed By: #### L 100.0100, L500.2500 #### [facility] [address] [place], [address] Absolute Neut 4.7 X10 3/uL Normal 2.0-7.[address] [facility] Comment on above: Performed By: #### L 100.0100, L500.2500 #### [facility] [address] [place], [address] Basophils/100 WBC (Bld) 0.8 % Normal 0-1 [facility] Comment on above: Performed By: #### L 100.0100, L500.2500 #### [facility] [address] [place], [address] Eosinophils/100 WBC (Bld) 2.7 % Normal 0-[address] [facility] Comment on above: Performed By: #### L 100.0100, L500.2500 #### [facility] [address] [place], [address] Erythrocyte distribution width (RBC) [Ratio] 12.0 % Normal 11.6-14.[address] [facility] Comment on above: Performed By: #### L 100.0100, L500.2500 #### [facility] [address] [place], [address] Hematocrit (Bld) [Volume fraction] 40.7 % Normal 40-[address] [facility] Comment on above: Performed By: #### L 100.0100, L500.2500 #### [facility] [address] [place], [address] Hemoglobin (Bld) [Mass/Vol] 14.1 g/dL Normal 13.0-16.[address] [facility] Comment on above: Performed By: #### L 100.0100, L500.2500 #### [facility] [address] [place], [address] IG% 0.300 Normal 0.0-0.[address] [facility] Comment on above: Result Comment: IG% - Immature Granulocytes (promyelocytes, myelocytes and metamyelocytes) > 1% indicates that a LEFT SHIFT is Present. Performed By: #### L 100.0100, L500.2500 #### [facility] [address] [place], [address] Lymphocytes/100 WBC (Bld) 24.1 % Normal 19-[address] [facility] Comment on above: Performed By: #### L 100.0100, L500.2500 #### [facility] [address] [place], [address] MCH (RBC) [Entitic mass] 32.1 pg High 27.0-32.[address] [facility] Comment on above: Performed By: #### L 100.0100, L500.2500 #### [facility] [address] [place], [address] MCHC (RBC) [Mass/Vol] 34.6 g/dL Normal 32-36 [facility] Comment on above: Performed By: #### L 100.0100, L500.2500 #### [facility] [address] [place], [address] MCV (RBC) [Entitic vol] 92.7 fL Normal 80-94 W [facility] Comment on above: Performed By: #### L 100.0100, L500.2500 #### [facility] [address] [place], [address] Monocytes/100 WBC (Bld) 10.0 % Normal 0-10 W [facility] Comment on above: Performed By: #### L 100.0100, L500.2500 #### [facility] [address] [place], [address] Neutrophils/100 WBC (Bld) 62.1 % Normal 47-[address] [facility] Comment on above: Performed By: #### L 100.0100, L500.2500 #### [facility] [address] [place], [address] Nucleated RBC (Bld) [#/Vol] 0 10*3/uL Normal 0-[address] [facility] Comment on above: Performed By: #### L 100.0100, L500.2500 #### [facility] [address] [place], [address] Platelet mean volume (Bld) [Entitic vol] 9.2 fL Normal 6.2-12.[address] [facility] Comment on above: Performed By: #### L 100.0100, L500.2500 #### [facility] [address] [place], [address] Platelets (Bld) [#/Vol] 214 10*3/uL Normal 150-[address] [facility] Comment on above: Performed By: #### L 100.0100, L500.2500 #### [facility] [address] [place], [address] RBC (Bld) [#/Vol] 4.39 10*6/uL Low 4.6-6.2 [facility] Comment on above: Performed By: #### L 100.0100, L500.2500 #### [facility] [address] [place], [address] RDW SD 41.5 fl Normal 35.1-43.[address] [facility] Comment on above: Performed By: #### L 100.0100, L500.2500 #### [facility] [address] [place], [address] WBC (Bld) [#/Vol] 7.5 10*3/uL Normal 4.4-11.0 [facility] Comment on above: Performed By: #### L 100.0100, L500.2500 #### [facility] [address] [place], [address] Carbon dioxide, total [Moles /volume] in Central venous bloodOrdered By: Vlad Jimenez on 12-21-2024 CO2 [Moles/Vol] 25.8 mmol/L 21.0-32.[address] [facility] Chloride assayOrdered By: Shayy Jimenez on 12-21-2024 Chloride [Moles/Vol] 103 mmol/L 98-108 [facility] Emergency Department Summary on 12-21-2024 Emergency Department Summary [facility] Medical Records Department [address] [place] [address] Emergency Department Summary 12/21/24 MR#: [id number] Acct: [id number] Name: CHEPE MADISON Rep #: [id number] : 1970 54 From: Vlad Jimenez DO PCP: Care Physician,No Primary Status:DEP ER Location: ED HPI History of Present Illness Chief Complaint: Flank Pain Detail of Chief Complaint: Flank pain Informant: patient Narrative Narrative: Patient presents the emergency department complaint flank pain that started yesterday morning. Initially woke him up from sleep. Pain is intermittent and at times will be a 10 out of 10. Currently his pain is about a 3-4 out of 10. Earlier this morning was again severe. He had some nausea with it but no vomiting. Thinks maybe there may have been small amount of blood in his urine yesterday but is not sure. No history of kidney stones. Denies dysuria urgency or frequency. He denies any injury to his back. He has no medical history. Patient states yesterday the pain radiated to the front of the abdomen as well. PFSH PFSH Medical History no medical history Home Medications ???Medication ???Instructions ???Recorded ???Last Taken ???Type hydrocodone-acetami nophen 5-325mg 1 tab PO Q4H PRN PRN Pain 2 days 12/21/24 Unknown Rx 5mg-325mg #10 TABLETS naproxen 500 mg tablet 500 mg PO BID #14 tabs 12/21/24 Un known Rx Allergy/AdvReac Type Severity Reaction Status Date / Time No Known Allergies Allergy Verified 12/21/24 09:42 Family History no significant family his Surgical History no surgical history Social History Smoking Status: Unknown if ever smoked ROS ROS ED Review of Systems ROS Unobtainable: other Constitutional Constitutional ED: Reports lethargy; Denies chills, fever(s), sweats or weight loss Eyes Eyes: Denies blurry vision, change in vision or diplopia ENT ENT ED: Denies rhinorrhea or sore throat Cardiovascular Cardiovascular: Denies chest pain, orthopnea or racing heartbeat Respiratory/Chest Respiratory/Chest: Denies cough, dyspnea, dyspnea on exertion, orthopnea or sputum Gastrointestinal Gastrointestinal: Reports abdominal pain; Denies diarrhea, nausea or vomiting Genitourinary Genitourinary ED: Denies dysuria, hematuria or urinary frequency Musculoskeletal Musculoskeletal: Reports back pain; Denies arthralgias, myalgias or neck pain Integumentary Denies abscess, Abrasions or rash Neurologic Neurologic: Denies headache(s) or weakness Psychiatric Psychiatric: Denies anxiety, depression or suicidal thoughts Endocrine Endocrinology: Denies polydipsia, polyphagia or polyuria Hematologic/Lymphat ic Hematologic/Lymphat ic: Denies easy bleeding, easy bruising or lymphadenopathy Allergic/Immunologi c Allergic/Immunologi c ED: Denies mouth swelling, tongue swelling or urticaria EXAM Physical Exam Const Vital Signs: 12/21/24 09:42 12/21/24 09:54 Temperature 98.0 F 98.6 F Temperature Source Oral Oral Pulse Rate 89 89 Respiratory Rate 16 16 Blood Pressure 130/78 H 130/78 H Blood Pressure Mean 95 95 Pulse Ox 98 98 Oxygen Delivery Method Room Air Room Air Positive well nourished and well developed General Appearance ED: well developed and NAD HEENT Reports TM's clear and moist mucous membranes normocephalic and atraumatic; Negative for trauma or tenderness Tympanic Membrane ED: Yes TM's clear Eyes PERRL and EOMs intact bilaterally General Eye ED: Negative for pale conjunctiva or scleral icterus Neck no lymphadenopathy, supple and no JVD General: Negative for tenderness Chest Wall inspection of chest normal and palpation of chest normal Chest: Negative for tenderness Resp normal respiratory effort and clear to auscultation bilaterally Effort and Inspection: Negative for respiratory distress or pain with movement Auscultation: Negative for rhonchi, wheezes or diminished lung sounds Cardio regular rate, regular rhythm, S1 normal heart sound, S2 normal heart sound and no murmurs Peripheral Pulses: pulses 2+ throughout GI normal to inspection, nondistended, normoactive bowel sounds, soft to palpation, non-distended and no masses GI Narrative: Mild tenderness palpation of the right lower quadrant with some guarding. There is no rebound, rigidity, or peritoneal signs. No mass palpated. Back/Spine no thoracic nor lumbar tenderness Back/Spine Narrative: Patient with CVA tenderness on the right. Extremity normal to inspection General Extremety ED: Negative for edema General Extremity: Negative for edema Neuro oriented x3, CN's II-XII intact bilaterally, no sensory deficits noted and gait normal Sensorium / Orientation: awake, alert, oriented to person, oriented to place and oriented to time Motor Exam: strength 5/5 throughout and (more content not included)... Normal [facility] Eosinophil percentageOrdered By: Vlad Jimenez on 12-21-2024 Eosinophils/100 WBC (Bld) 2.7 % 0-[address] [facility] Erythrocyte distribution wid th ratioOrdered By: Vlad Jimenez on 12-21-2024 Erythrocyte distribution width (RBC) [Ratio] 12.0 % 11.6-14.[address] [facility] Erythrocyte distribution wid th standard deviationOrdered By: Vlad Jimenez on 12-21-2024 Erythrocyte distribution width (RBC) [Ratio] 41.5 fl 35.1-43.[address] [facility] Glomerular filtration rate ( GFR) estimation/1.73 sq m using serum, plasma, or whole bOrdered By: Vlad Jimenez on 12-21-2024 GFR/1.73 sq M.predicted among non-blacks MDRD (S/P/Bld) [Vol rate/Area] 106 mL/min/{1.73_m2} >[address] [facility] Comment on above: mL/min/1.73m2 CKD-EP I Creatinine Equation (2020) Hematocrit Auto (Bld) [Volum e fraction]Ordered By: Vlad Jimenez on 12-21-2024 Hematocrit (Bld) [Volume fraction] 40.7 % 40-[address] [facility] Hemoglobin measurementOrdere d By: Vlad Jimenez on 12-21-2024 Hemoglobin (Bld) [Mass/Vol] 14.1 g/dL 13.0-16.[address] [facility] Immature granulocytes/100 WB C Auto (Bld)Ordered By: Vlad Jimenez on 12-21-2024 Immature granulocytes/100 WBC (Bld) 0.300 % 0.0-0.[address] [facility] Comment on above: IG% - Immature Granu locytes (promyelocytes, myelocytes and metamyelocytes) > 1% indicates that a LEFT SHIFT is Present. Ketones Test strip Ql (U)Ord ered By: Vlad Jimenez on 12-21-2024 Ketones Ql (U) 5 mg/dl High Negative [facility] MCV (mean corpuscular volume ) determinationOrdered By: Vlad Jimenez on 12-21-2024 MCV (RBC) [Entitic vol] 92.7 fL 80-94 W [facility] Mean corpuscular hemoglobin (MCH) determinationOrdered By: Vlad Jimenez on 12-21-2024 MCH (RBC) [Entitic mass] 32.1 pg High 27.0-32.[address] [facility] Mean corpuscular hemoglobin concentration (MCHC) determinationOrdered By: Vlad Jimenez on 12-21-2024 MCHC (RBC) [Mass/Vol] 34.6 g/dL 32-36 [facility] Mean platelet volume determi nationOrdered By: Vlad Jimenez on 12-21-2024 Platelet mean volume (Bld) [Entitic vol] 9.2 fL 6.2-12.[address] [facility] Microscopic analysis of urin e for red blood cells (RBC)Ordered By: Vlad Jimenez on 12-21-2024 Microscopic analysis of urine for red blood cells (RBC) 0-5 SEEN /hpf 0-[address] [facility] Monocyte percentageOrdered B y: Vlad Jimenez on 12-21-2024 Monocytes/100 WBC (Bld) 10.0 % 0-10 W [facility] Mucus LM Ql (Urine sed)Order ed By: Vlad Jimenez on 12-21-2024 Mucus Ql (Urine sed) 0 SEEN /hpf [facility] Neutrophil percentageOrdered By: Vlad Jimenez on 12-21-2024 Neutrophils/100 WBC (Bld) 62.1 % 47-[address] [facility] Nitrite Test strip Ql (U)Ord ered By: Vlad Jimenez on 12-21-2024 Nitrite Ql (U) Negative Negative [facility] Nucleated red blood cell per centageOrdered By: Vlad Jimenez on 12-21-2024 Nucleated RBC/100 WBC (Bld) [Ratio] 0 % 0-[address] [facility] Platelet countOrdered By: Shayy Jimenez on 12-21-2024 Platelets (Bld) [#/Vol] 214 10*3/uL 150-[address] [facility] Potassium measurement (mass/ volume)Ordered By: Vlad Jimenez on 12-21-2024 Potassium (Unsp spec) [Mass/Vol] 3.8 mmol/L 3.3-5.[address] [facility] Protein Test strip Ql (U)Ord ered By: Vlad Jimenez on 12-21-2024 Protein Ql (U) 15 mg/dl High Negative [facility] RBC Auto (Bld) [#/Vol]Ordere d By: Vlad Jimenez on 12-21-2024 RBC (Bld) [#/Vol] 4.39 10*6/uL Low 4.6-6.2 [facility] Serum creatinine measurement (mass/volume)Ordered By: Vlad Jimenez on 12-21-2024 Creatinine [Mass/Vol] 0.81 mg/dL 0.70-1.20 [facility] Serum glucose measurement (m ass/volume)Ordered By: Vlad Jimenez on 12-21-2024 Glucose [Mass/Vol] 133 mg/dL High 70-99 [facility] Serum or plasma calcium marlen urement (mass/volume)Ordered By: Vlad Jimenez on 12-21-2024 Calcium [Mass/Vol] 8.9 mg/dL 7.6-11.0 [facility] Serum or plasma urea nitroge n measurement (mass/volume)Ordered By: Vlad Jimenez on 12-21-2024 Urea nitrogen [Mass/Vol] 11 mg/dL 4-[address] [facility] Sodium levelOrdered By: Negra Jimenez on 12-21-2024 Sodium [Moles/Vol] 139 mmol/L 133-145 [facility] Squamous epithelial cells de tection in urine sediment by light microscopyOrdered By: Vlad Jimenez on 12-21-2024 Epithelial cells.squamous LM Ql (Urine sed) 0-5 SEEN /hpf 0-[address] [facility] Urinalysis, Completeon 12-21 EPI,SQUAMOUS 0-5 SEEN Normal 0-[address] [facility] Comment on above: Order Comment: CLEAN CATCH Performed By: #### L 400.0001 #### [facility] [address] [place], [address] RBC 0-5 SEEN Normal 0-[address] [facility] Comment on above: Order Comment: CLEAN CATCH Performed By: #### L 400.0001 #### [facility] [address] [place], [address] BACTERIA 0 SEEN Normal None Seen [facility] Comment on above: Order Comment: CLEAN CATCH Performed By: #### L 400.0001 #### [facility] [address] [place], [address] Mucus Ql (Urine sed) 0 SEEN Normal [facility] Comment on above: Order Comment: CLEAN CATCH Performed By: #### L [id number] #### [facility] [address] [place], [address] WBC 0 SEEN Normal 0-[address] [facility] Comment on above: Order Comment: CLEAN CATCH Performed By: #### L 400.0001 #### [facility] [address] [place], [address] Urine clarityOrdered By: Minoo Jimenez on 12-21-2024 Clarity (U) Clear Clear [facility] Urine color determinationOrd ered By: Vlad Jimenez on 12-21-2024 Color (U) Yellow Yellow [facility] Urine glucose detectionOrder ed By: Vlad Jimenez on 12-21-2024 Glucose Ql (U) Normal mg/dl Normal [facility] Urine leukocyte esterase det ection by dipstickOrdered By: Vlad Jimenez on 12-21-2024 Leukocyte esterase Test strip Ql (U) Negative Negative [facility] Urine pHOrdered By: Vlad Rodriguez gur on 12-21-2024 pH (U) 6.0 [pH] 5.0 - 8.[address] [facility] Urine sediment bacteria coun t by microscopy (number/high power field)Ordered By: Vlad Jimenez on 12-21-2024 Bacteria LM.HPF (Urine sed) [#/Area] 0 /[HPF] None Seen [facility] Urine specific gravity measu rementOrdered By: Vlad Jimenez on 12-21-2024 Specific gravity (U) [Rel density] 1.015 1.002-1.[address] [facility] Urine urobilinogen measureme ntOrdered By: Vlad Jimenez on 12-21-2024 Urobilinogen Ql (U) Normal mg/dl Normal [facility] White blood cell (WBC) count Ordered By: Vlad Jimenez on 12-21-2024 WBC (Bld) [#/Vol] 7.5 10*3/uL 4.4-11.0 [facility] White blood cell countOrdere d By: Vlad Jimenez on 12-21-2024 White blood cell count 0 SEEN /hpf 0-5 [facility] Vital Signs Date Time Vital Sign Value Performing Clinician Faci lity 01-26-2025 15:35-0400 Body temperature 97.8 [degF] Dr. Vlad Jimenez DO Work Phone: [facility] 01-26-2025 15:35-0400 Diastolic blood pressure 59 mm[Hg] Dr. Vlad Jimenez DO Work Phone: [facility] 01-26-2025 15:35-0400 Heart rate 84 /min Dr. Vlad Jimenez DO Work Phone: [facility] 01-26-2025 15:35-0400 Respiratory rate 16 /min Dr. Vlad Jimenez DO Work Phone: [phone] [place] [address] 01-26-2025 15:35-0400 SaO2% (BldA) [Mass fraction] 94 % Dr. Vlad Jimenez DO Work Phone: [phone] [place] [address] 01-26-2025 15:35-0400 Systolic blood pressure 105 mm[Hg] Dr. Vlad Jimenez DO Work Phone: 6([phone] [place] [address] 01-26-2025 13:50-0400 Body height 170.[address] Vlad Jimenez DO Work Phone: 2([phone] [place] [address] 01-26-2025 13:50-0400 Body mass index (BMI) [Ratio] 28 kg/m2 Dr. Vlad Jimenez DO Work Phone: 4([phone])[phone] [place] [address] 01-26-2025 13:50-0400 Body weight 81.[address] Vlad Jimenez DO Work Phone: [phone] [place] [address] 12-21-2024 10:46-0400 Body temperature 98.6 [degF] Dr. Vlad Jimenez DO Work Phone: [phone] [place] [address] 12-21-2024 10:46-0400 Diastolic blood pressure 78 mm[Hg] Dr. Vlad Jimenez DO Work Phone: [phone] [place] [address] 12-21-2024 10:46-0400 Heart rate 89 /min Dr. Vlad Jimenez DO Work Phone: 4([phone])[phone] [place] [address] 12-21-2024 10:46-0400 Respiratory rate 16 /min Dr. Vlad Jimenez DO Work Phone: [phone] [place] [address] 12-21-2024 10:46-0400 SaO2% (BldA) [Mass fraction] 98 % Dr. Vlad Jimenez DO Work Phone: [phone] [place] [address] 12-21-2024 10:46-0400 Systolic blood pressure 130 mm[Hg] Dr. Vlad Jimenez DO Work Phone: 1(978)[phone] [place] [address] 12-21-2024 09:42-0400 Body height 170.[address] Vlad Jimenez DO Work Phone: [facility] 12-21-2024 09:42-0400 Body mass index (BMI) [Ratio] 28.6 kg/m2 Dr. Vlad Jimenez DO Work Phone: [facility] 12-21-2024 09:42-0400 Body weight [address] Vlad Jimenez DO Work Phone: [facility] Encounters Encounter Date Encounter Type Care Provider Facility Start: 01-26-2025 End: 01-26-2025 Admission to same day surgery center Dr. Jose Lam MD -[facility] Start: 01-26-2025 End: 01-26-[address] Vlad Jimenez DO Work Phone: -[facility] Start: 01-24-2025 End: 01-24-[address] Vlad Jimenez DO Work Phone: -Radiology [facility] Start: 01-24-2025 End: 01-24-[address] Jose Lam MD -Radiology [facility] Work Phone: Start: 01-24-2025 End: 01-24-2025 ambulatory Jose Lam Facility:[facility] Start: 12-21-2024 End: 12-21-2024 Emergency department patient visit Dr. Vlad Jimenez DO Work Phone: -Emergency Department Work Phone: Procedures Date Procedure Procedure Detail Performing Clinician Start: 01-26-2025 Cystoscopy and retro grade pyelography Dr. Vlad Jimenez DO Work Phone: Start: 01-24-2025 Plain X-ray abdomen Dr. Vlad Jimenez DO Work Phone: Start: 12-21-2024 Urnls dip stick/tabl et reagent auto microscopy Dr. Vlad Jimenez DO Work Phone: Start: 12-21-2024 CT of abdomen and pe lvis without contrast Dr. Vlad Jimenez DO Work Phone: Start: 12-21-[address] Vlad Jimenez DO Work Phone: Plan of Treatment Date Care Activity Detail Author Start: 01-26-2025 Ambulation without limitation [facility] Start: 01-26-2025 Medical regimen orde rs management [facility] Start: 01-26-2025 Medication education [facility] Start: 01-26-2025 Taking patient vital signs [facility] Start: 01-26-2025 [facility] Start: 01-26-2025 End: 01-26-2025 Patient discharge [facility] Start: 12-21-2024 [facility] Patient Education ED Kidney Ston e with Pain [facility] Work Phone: Patient referral [facility] Work Phone: Payers Date Payer Category Payer Self-pay 2024 Unknown [id number] Self-pay [id number] Unknown [id number] Unknown [id number] Social History Date Type Detail Facility Start: [facility]-21-[facility]24 [facility] Start: 1970 Sex Assigned At Male W [facility] Start: 01-26-2025 [facility] (finding[facility] Goals Date Patient Goal Desired Activity /State Mental Status Date Assessment Result Facility 01-26-2025 Cognitive function Level Of Consciousness Drowsy [facility] Work Phone: Clinical Notes 12-21-2024 to 01-26-2025 Note Date & Type Note Facility 01-26-2025 Consult note Note Date/Time January 26, 2025 2:05pm [facility] Medical Records Department [address] [place] [address] Pre-Anesthesia Evaluation 01/26/25 1359 MR#: [id number] Acct: [id number] Name: CHEPE MADISON Rep #:[id number] : 1970 54 From: Richie Macedo MD PCP: Care Physician,No Primary Status :REG SDC Y Race: C Location: [place] [address] ASA Classification* ASA Classification ASA Classification: 2 Assessment & Plan Anesthesia* Anesthesia Assessment Anesthesia Assessment: Discussed sedation and/or anesthesia options, risks, benefits, and alternatives with patient/parents/legal guardian/POA. Questions invited. The patient/parents/legal guardian/POA seems to understand and agrees to proceedwith anesthesia plan. Reviewed the physical assessment, medical history, allergy history and patient home medications list prior to surgery/procedure/anesthetic and documented any changes. Performed airway and anesthesia risk assessments. Anesthesia Type Anesthesia Type: General History Source History Obtained from:: Patient and Chart Anesthesia Focused Assessment* Temperature: 97.1 F Pulse Rate: 86 Blood Pressure: 113/79 Respiratory Rate: 18 Pulse Ox: 97 Oxygen Delivery Method: Room Air Airway Assessment Mouth opens: >3 cm Mallampati Score: III Teeth Condition: Dentures (Full upper dentures are out.) and Missing (Patient has multiple missing teeth on the bottom. Rest are tight.) Neck Range of motion (ROM): Full ROM Labs Anesthesia Preop lab: CBC WBC 7.5 K/mm3 (4.4-11.0) 12/21/24 10:12/21/24 RBC 4.39 M/mm3 (4.6-6.2) L 12/21/24 10:12/21/24 Hgb 14.1 g/dL (13.0-16.5) 12/21/24 10:12/21/24 Hct 40.7 % (40-54) 12/21/24 10:12/21/24 Plt Count 214 K/mm3 (150-450) 12/21/24 10:12/21/24 CHEMISTRY Potassium 3.8 mmol/L (3.3-5.1) 12/21/24 10:03 12/21/24 Sodium 139 mmol/L (133-145) 12/21/24 10:03 12/21/24 BUN 11 mg/dL (4-19) 12/21/24 10:03 12/21/24 Creatinine 0.81 mg/dL (0.70-1.20) 12/21/24 10:03 12/21/24 Glucose 133 mg/dL (70-99) H 12/21/24 10:03 12/21/24 COAG Pre-Assessment Diagnosis/Proposed Procedure Planned Operative Procedure(s): RIGHT URETEROSCOPY ESWL Anesthesia History Anesthesia History - drapery hemmer automatic: Anesthesia History - drapery hemmer automatic Hx Hospitalization No 01/25/25 11:49 Any Problems With Anesthesia No 01/25/25 11:49 Cholinesterase deficiency No 01/25/25 11:49 You/Your Family Experience No 01/25/25 11:49 fever (hyperthermia) with Relationship Recent Exposure to Contagious No 01/26/25 13:50 Disease Does patient have nerve No 01/25/25 11:49 stimulator Patient instructed to have device shut off --Does patient have Pacemaker No 01/26/25 13:50 or ICD? When Was Last Pacemaker Check QUESTION #4 FULL TEXT: You/Your Family Experience fever (hyperthermia) with Anesthesia Last Oral Intake Last Oral intake: Last Oral Intake NPO since 13:00 01/26/25 13:50 Meds taken in AM with sips of No 01/26/25 13:50 water? Meds patient instructed to take am of surgery Any additional information?: Yes NPO since: 13:00 (Patient had 8 ounces of waterat 1:00PM) Meds taken in AM with sips of water?: No PONV PONV - drapery hemmer automatic: PONV - drapery hemmer automatic Female No 01/25/25 11:49 HX of Motion Sickness No 01/25/25 11:49 HX of N/V After Surgery No 01/25/25 11:49 Non-Smoker No 01/25/25 11:49 Duration of Surgery greater Yes 01/25/25 11:49 than 60 minutes Number of Risk Factors 1 01/25/25 11:49 PONV Score Low Risk 01/25/25 11:49 Height & Weight Height & Weight: Anesthesia: Height & Weight Height 5 ft 7 in 01/26/25 13:50 Weight: 81.2 kg 01/26/25 13:50 Body Mass Index (BMI) 28.0 01/26/25 13:50 Respiratory Assessment Respiratory Assessment - drapery hemmer automatic: Respiratory Tract Infection Hx - drapery hemmer automatic Hx Respiratory Tract Infection No 01/25/25 11:49 STOP Sleep Apnea STOP Sleep Apnea - drapery hemmer automatic: STOP Sleep Apnea - drapery hemmer automatic Hx Hypertension No 01/25/25 11:49 Hx Sleep Apnea No 01/25/25 11:49 CPAP BIPAP Do you snore loudly (louder No 01/25/25 11:49 than talking or can be heard Do you often feel tired/ No 01/25/25 11:49 fatigued/ sleepy during daytime? Has anyone observed you stop No 01/25/25 11:49 breathing during sleep? STOP Results Negative 01/25/25 11:49 QUESTION #5 FULL TEXT : Do you snore loudly (louder than talking or can be heard through closed doors)? 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 confused, unrespo /Reproduction History /Reproductive History - drapery hemmer automatic: /Reproductive Hx- drapery hemmer automatic Hx Now No 01/25/25 11:49 Gestational Age (in weeks): EDC: Hx Hx Para Hx Section SAB No 01/25/25 11:49 Active Medications Active Medications: Current Medications Generic Name Dose Route Start Last Admin Trade Name Freq PRN Reason Stop Dose Admin Acetaminophen 650 mg 01/26/25 13:51 Acetaminophen 325 Mg Tablet PO Q4H PRN PRN Pain Score 1-5 Cefazolin Sodium 2 gm/ Sodium 110 mls @ 200 mls/hr 01/26/25 15:30 Chloride IV 01/26/25 16:02 INTRAOP ONE Lactated Ringer's 1,000 mls @ 15 mls/hr 01/26/25 13:45 01/26/25 13:54 IV 15 mls/hr .Q48H HAYDEE Administration Lactated Ringer's 1,000 mls @ 100 mls/hr 01/26/25 14:00 IV .Q10H HAYDEE Metoclopramide HCl 10 mg 01/26/25 13:51 Metoclopramide 10 Mg/2 Ml Vial IV X1 PRN NAUSEA/VOMITING Ondansetron HCl 4 mg 01/26/25 13:51 Ondansetron 4 Mg/2 Ml Vial IV X1 PRN NAUSEA Oxycodone HCl 5 - 10 mg 01/26/25 13:51 Oxycodone 5 Mg Tablet PO Q6H PRN PRN Pain Score 4-10 PFSH Medical History Wears glasses Wears dentures Injury of head and neck Heartburn Shortness of breath on exertion Leg cramps Smoker Home Medications ?Medication ?Instructions ?Recorded ?Last Taken ?Type hydrocodone-acetaminophen 5-325mg 1 tab PO Q4H PRN PRN Pain 2 days 12/21/24 Unknown Rx 5mg-325mg #10 TABLETS naproxen 500 mg tablet 500 mg PO BID #14 tabs 12/21 Unknown Rx ciprofloxacin HCl 500 mg tablet 500 mg PO BID #10 tabs 01/26/25 Unknown Rx (Cipro) oxycodone 5 mg tablet 5 mg PO Q6H PRN pain 3 days #14 01/26/25 Unknown Rx tabs Allergy/AdvReac Type Severity Reaction Status Date / Time No Known Allergies Allergy Verified 01/26/25 13:50 Surgical History (Updated 01/25/25 @ 11:55 by Shilpa Foster) History of exploratory laparotomy Social History Smoking Status: Current every day smoker tobacco type: cigarettes Review of Systems (Anesthesia) ROS Narrative System reviewed and no additional complaints, except as documented. 01/26/25 1405 <Electronically signed by Richie lloyd MD> Date _ Richie Macedo MD Cosigner Signature: Date CC: ~ Signed [facility] Work Phone: [phone]) 600-671407-18-2025 Discharge summary Author Jose Lam [facility] Note Date/Time January 26, 2025 1:52 pm [facility] Medical Records Department [address] [place] [address] Instructions for Home/Discharge Instructions 01/26/25 1351 MR#: [id number] Acct: [id number] Name: CHEPE MADISON Doris Rep #:[id number] : 1970 54 From: Jose Lam MD PCP: Care Physician,No Primary Status :REG SDC Discharge Instructions DC O2, CPAP, BIPAP needs Home O2 Discharge instructions: No Dressing / Incision Discharge Activity: Return to Normal Activity and May Not Drive (while taking narcotic pain medications.) Dressing / Incision Call your doctor if you observe: Fever of 101 or Higher and Uncontrolled pain Follow Up Care Please Follow Up With: Jose Lam MD When: Call [phone] for an appointment Test Results: Test results from this visit will be discussed in further detail at your follow- up appointment, if applicable. Discharge Plan Admission Primary Reason for Your Visit: right ESWL Attending Provider: Jose Lam Primary Care Provider: Care Physician,No Primary Instructions Print Language: Nepalese Discharge Orders/Prescriptions Prescriptions: New ciprofloxacin HCl [Cipro] 500 mg tablet 500 mg PO BID Qty: 10 0RF oxycodone 5 mg tablet 5 mg PO Q6H PRN (Reason: pain) 3 Days Qty: 14 0RF Continued hydrocodone-acetaminophen 5-325 mg tablet 1 tab PO Q4H PRN PRN (Reason: Pain) 2 Days Qty: 10 0RF naproxen 500 mg tablet 500 mg PO BID Qty: 14 0RF Referrals / Follow Up: Jose Lam MD [Med Staff - Active Staff] - Care Physician,No Primary [Primary Care Provider] - Disposition Disposition (needs filled in before D/C Order can be placed): Home, Self Care 01/26/25 1352<Electronically signed by Jose Lam MD>Jose Lam MD CC: No Primary Care Physician ~ Signed [facility] Work Phone: 1(510) 194-146807-18-2025 History and physical note Author Jose Genaro [facility] Note Date/Time January 26, 2025 1:48 pm [facility] Medical Records Department [address] [place] [address] History & Physical Exam 01/26/25 0705 MR#: [id number] Acct: [id number] Name: CHEPE MADISON Rep #:[id number] : 1970 54 From: Jose Lam MD PCP: Care Physician,No Primary Status :[facility] Location: [place] [address] HPI - General General Date of Service: 01/26/25 Chief Complaint: Right kidney stone kidney stone HPI Narrative CHEPE MADISON, is a 54 M who presents for treatment of the kidney stone with ureteroscopy laser lithotripsy and stent placement on the [facility] Medical History Wears glasses Wears dentures Injury of head and neck Heartburn Shortness of breath on exertion Leg cramps Smoker Home Medications ?Medication ?Instructions ?Recorded ?Last Taken ?Type hydrocodone-acetaminophen 5-325mg 1 tab PO Q4H PRN PRN Pain 2 days 12/21/24 Unknown Rx 5mg-325mg #10 TABLETS naproxen 500 mg tablet 500 mg PO BID #14 tabs 12/21 Unknown Rx Allergy/AdvReac Type Severity Reaction Status Date / Time No Known Allergies Allergy Verified 01/25/25 11:48 Surgical History (Updated 01/25/25 @ 11:55 by Shilpa Foster) History of exploratory laparotomy Social History Smoking Status: Current every day smoker tobacco type: cigarettes 01/26/25 0706 <Electronically signed by Jose Lam MD> Cosigner Signature (if applicable): CC: Dr. Jose Lam MD; No Primary Care Physician~ Signed ADDENDUM by Dr. Jose Lam MD on 01/26/25 at 1348 Addendum procedure changed to right ESWL to treat stont. pt agreeable. 01/26/25 1348<Electronically signed by Jose Lam MD> Cosigner Signature (if applicable): cc: Dr. Jose Lam MD; No Primary Care Physician ~* Signed [facility] Work Phone: 1(985) 297-607307-18-2025 Consult note [facility] Medical Records Department [address] [place] [address] Anesthesia Postop Eval I 01/26/25 1522 MR#: [id number] Acct: [id number] Name: CHEPE MADISON Rep #:[id number] : 1970 54 From: Leidy fiore SUPERVISOR/PORT DIRECTOR PCP: Care Physician,No Primary Status :[facility] Y Race: C Location: [place] [address] Anesthesia: Postop Eval I Current Vital Signs Temperature: 97 F Pulse Rate: 84 Blood Pressure: 108/66 Respiratory Rate: 16 Pulse Ox: 99 Oxygen Delivery Method: Room Air Assessment Airway patent: Yes Spontaneous unlabored respirations: Yes Mental status: Awake and Calm nausea: No Vomiting: No Anesthesia Complication: No Fluid Hydration Crystalloid volume administer (ml): 800 Total IV fluid infused: 800 Progress Note Anesthesia document: Postop Eval 1 completed: Yes 01/26/25 1523 jung SUPERVISOR/PORT DIRECTOR> Date _ Leidy Rock SUPERVISOR/PORT DIRECTOR Cosigner Signature: Date CC: ~ Signed [facility]07-18-2025 Procedure note [facility] Medical Records Department [address] [place] [address] Operative Report 01/26/25 1448 MR#: [id number] Acct: [id number] Name: CHEPE MADISON Rep #:[id number] : 1970 54 From: Jose Lam MD PCP: Care Physician,No Primary Status :[facility] Location: [place] [address] Operative Report (Standard) Operative Information Date of Procedure: 01/26/25 Pre-Operative Diagnosis: Right kidney stone Post-Operative Diagnosis: The same Surgery/Procedure Performed: Right ureteroscopy, right extracorporeal shockwave lithotripsy funeral pre arrangement specialist: No Type of Anesthesia: General RN Documented Start/Stop Times: Operation Date: 01/26/25 15:30 Case Time Into Pre-Op 01/26/25 13:40 Out of Pre-Op 01/26/25 14:08 Anesthesia Start 01/26/25 14:12 Into Room 01/26/25 14:12 Procedure Start 01/26/25 14:22 Procedure Start Time: 14:22 Procedure Stop Time: 15:12 Select all DRAINS/GRAFTS/IMPLANTS that apply: None Estimated Blood Loss: None Specimen collected: No Description of surgery: This 54-year-old male presents to the hospital for treatment of a kidney stone KUB was reviewed that there was a possible stone in the distal ureter but then Itook him to surgery and then under fluoroscopy I was not convinced that this wasa stone the possible phlebolith so the penis was prepped anddraped you sterile fashion went in the bladder with the flexible ureteroscope was able to get into the ureter with the wire and then went up the ureter and then as went up the ureter ended up pushingthe stone up into the kidney and then the stone over then localized in the kidney I then remove theureteroscope we pushed the stone the F2 focal point in the machine and then proceeded with shockwave lithotripsy we delivered a total of 2000 shockwaves to the stone and the stone appeared to break up into the small little fragments we did not increase the power too much and then broke the stone into little pieces no stent was placed patient anesthetic was reversed and taken back to the PACU in good condition after successful treatment of the kidney stone with Dr. Kingsley we did have to useureteroscopy to locate the the stone since it was hard to locate under fluoroscopy alone. Surgical Findings: Stone found in the kidney and shockwave lithotripsy to the stone Complications Complications: No Admit VTE Documentation VTE Present on Admission: No VTE Mechan Device Prophylaxis: SCD's VTE Pharm Prophylaxis ordered?: No 01/26/25 4982 Cosigner Signature (if applicable): CC: Dr. Jose Lam MD; No Primary Care Physician~ Signed [facility]07-18-2025 Consult note [facility] Medical Records Department [address] [place] [address] Pre-Anesthesia Evaluation 01/26/25 1359 MR#: [id number] Acct: [id number] Name: CHEPE MADISON Rep #:[id number] : 1970 54 From: Richie Macedo MD PCP: Care Physician,No Primary Status :[facility] Y Race: C Location: [place] [address] ASA Classification* ASA Classification ASA Classification: 2 Assessment & Plan Anesthesia* Anesthesia Assessment Anesthesia Assessment: Discussed sedation and/or anesthesia options, risks, benefits, and alternatives with patient/parents/legal guardian/POA. Questions invited. The patient/parents/legal guardian/POA seems to understand and agrees to proceedwith anesthesia plan. Reviewed the physical assessment, medical history, allergy history and patient home medications list prior to surgery/procedure/anesthetic and documented any changes. Performed airway and anesthesia risk assessments. Anesthesia Type Anesthesia Type: General History Source History Obtained from:: Patient and Chart Anesthesia Focused Assessment* Temperature: 97.1 F Pulse Rate: 86 Blood Pressure: 113/79 Respiratory Rate: 18 Pulse Ox: 97 Oxygen Delivery Method: Room Air Airway Assessment Mouth opens: >3 cm Mallampati Score: III Teeth Condition: Dentures (Full upper dentures are out.) and Missing (Patient has multiple missing teeth on the bottom. Rest are tight.) Neck Range of motion (ROM): Full ROM Labs Anesthesia Preop lab: CBC WBC 7.5 K/mm3 (4.4-11.0) 12/21/24 10:03 12/21/24 RBC 4.39 M/mm3 (4.6-6.2) L 06/12/25 10:03 12/21/24 Hgb 14.1 g/dL (13.0-16.5) 12/21/24 10:03 12/21/24 Hct 40.7 % (40-54) 12/21/24 10:03 12/21/24 Plt Count 214 K/mm3 (150-450) 12/21/24 10:03 12/21/24 CHEMISTRY Potassium 3.8 mmol/L (3.3-5.1) 12/21/24 10:03 12/21/24 Sodium 139 mmol/L (133-145) 12/21/24 10:03 12/21/24 BUN 11 mg/dL (4-19) 12/21/24 10:03 12/21/24 Creatinine 0.81 mg/dL (0.70-1.20) 12/21/24 10:03 12/21/24 Glucose 133 mg/dL (70-99) H 12/21/24 10:03 12/21/24 COAG Pre-Assessment Diagnosis/Proposed Procedure Planned Operative Procedure(s): RIGHT URETEROSCOPY ESWL Anesthesia History Anesthesia History - drapery hemmer automatic: Anesthesia History - drapery hemmer automatic Hx Hospitalization No 01/25/25 11:49 Any Problems With Anesthesia No 01/25/25 11:49 Cholinesterase deficiency No 01/25/25 11:49 You/Your Family Experience No 01/25/25 11:49 fever (hyperthermia) with Relationship Recent Exposure to Contagious No 01/26/25 13:50 Disease Does patient have nerve No 01/25/25 11:49 stimulator Patient instructed to have device shut off --Does patient have Pacemaker No 01/26/25 13:50 or ICD? When Was Last Pacemaker Check QUESTION #4 FULL TEXT: You/Your Family Experience fever (hyperthermia) with Anesthesia Last Oral Intake Last Oral intake: Last Oral Intake NPO since 13:00 01/26/25 13:50 Meds taken in AM with sips of No 01/26/25 13:50 water? Meds patient instructed to take am of surgery Any additional information?: Yes NPO since: 13:00 (Patient had 8 ounces of waterat 1:00PM) Meds taken in AM with sips of water?: No PONV PONV - drapery hemmer automatic: PONV - drapery hemmer automatic Female No 01/25/25 11:49 HX of Motion Sickness No 01/25/25 11:49 HX of N/V After Surgery No 01/25/25 11:49 Non-Smoker No 01/25/25 11:49 Duration of Surgery greater Yes 01/25/25 11:49 than 60 minutes Number of Risk Factors 1 01/25/25 11:49 PONV Score Low Risk 01/25/25 11:49 Height & Weight Height & Weight: Anesthesia: Height & Weight Height 5 ft 7 in 01/26/25 13:50 Weight: 81.2 kg 01/26/25 13:50 Body Mass Index (BMI) 28.0 01/26/25 13:50 Respiratory Assessment Respiratory Assessment - drapery hemmer automatic: Respiratory Tract Infection Hx - drapery hemmer automatic Hx Respiratory Tract Infection No 01/25/25 11:49 STOP Sleep Apnea STOP Sleep Apnea - drapery hemmer automatic: STOP Sleep Apnea - drapery hemmer automatic Hx Hypertension No 01/25/25 11:49 Hx Sleep Apnea No 01/25/25 11:49 CPAP BIPAP Do you snore loudly (louder No 01/25/25 11:49 than talking or can be heard Do you often feel tired/ No 01/25/25 11:49 fatigued/ sleepy during daytime? Has anyone observed you stop No 01/25/25 11:49 breathing during sleep? STOP Results Negative 01/25/25 11:49 QUESTION #5 FULL TEXT : Do you snore loudly (louder than talking or can be heard through closeddoors)? 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 confused, unrespo /Reproduction History /Reproductive History - drapery hemmer automatic: /Reproductive Hx- drapery hemmer automatic Hx Now No 01/25/25 11:49 Gestational Age (in weeks): EDC: Hx Hx Para Hx Section SAB No 01/25/25 11:49 Active Medications Active Medications: Current Medications Generic Name Dose Route Start Last Admin Trade Name Freq PRN Reason Stop Dose Admin Acetaminophen 650 mg 01/26/25 13:51 Acetaminophen 325 Mg Tablet PO Q4H PRN PRN Pain Score 1-5 Cefazolin Sodium 2 gm/ Sodium 110 mls @ 200 mls/hr 01/26/25 15:30 Chloride IV 01/26/25 16:02 INTRAOP ONE Lactated Ringer's 1,000 mls @ 15 mls/hr 01/26/25 13:45 01/26/25 13:54 IV 15 mls/hr .Q48H HAYDEE Administration Lactated Ringer's 1,000 mls @ 100 mls/hr 01/26/25 14:00 IV .Q10H HAYDEE Metoclopramide HCl 10 mg 01/26/25 13:51 Metoclopramide 10 Mg/2 Ml Vial IV X1 PRN NAUSEA/VOMITING Ondansetron HCl 4 mg 01/26/25 13:51 Ondansetron 4 Mg/2 Ml Vial IV X1 PRN NAUSEA Oxycodone HCl 5 - 10 mg 01/26/25 13:51 Oxycodone 5 Mg Tablet PO Q6H PRN PRN Pain Score 4-10 PFSH Medical History Wears glasses Wears dentures Injury of head and neck Heartburn Shortness of breath on exertion Leg cramps Smoker Home Medications ?Medication ?Instructions ?Recorded ?Last Taken ?Type hydrocodone-acetaminophen 5-325mg 1 tab PO Q4H PRN PRN Pain 2 days 12/21/24 Unknown Rx 5mg-325mg #10 TABLETS naproxen 500 mg tablet 500 mg PO BID #14 tabs 12/21 Unknown Rx ciprofloxacin HCl 500 mg tablet 500 mg PO BID #10 tabs 01/26/25 Unknown Rx (Cipro) oxycodone 5 mg tablet 5 mg PO Q6H PRN pain 3 days #14 01/26/25 Unknown Rx tabs Allergy/AdvReac Type Severity Reaction Status Date / Time No Known Allergies Allergy Verified 01/26/25 13:50 Surgical History (Updated 01/25/25 @ 11:55 by Shilpa Foster) History of exploratory laparotomy Social History Smoking Status: Current every day smoker tobacco type: cigarettes Review of Systems (Anesthesia) ROS Narrative System reviewed and no additional complaints, except as documented. 01/26/25 1405 prema WALLACE> Date _ Richie Macedo MD Cosigner Signature: Date CC: ~ Signed [facility]07-18-2025 Discharge summary [facility] Medical Records Department [address] [place] [address] Instructions for Home/Discharge Instructions 01/26/25 1351 MR#: [id number] Acct: [id number] Name: CHEPE MADISON Rep #:[id number] : 1970 54 From: Jose Lam MD PCP: Care Physician,No Primary Status :[facility] Discharge Instructions DC O2, CPAP, BIPAP needs Home O2 Discharge instructions: No Dressing / Incision Discharge Activity: Return to Normal Activity and May Not Drive (while taking narcotic pain medications.) Dressing / Incision Call your doctor if you observe: Fever of 101 or Higher and Uncontrolled pain Follow Up Care Please Follow Up With: Jose Lam MD When: Call [phone] for an appointment Test Results: Test results from this visit will be discussed in further detail at your follow- up appointment, if applicable. Discharge Plan Admission Primary Reason for Your Visit: right ESWL Attending Provider: Jose Lam Primary Care Provider: Care Physician,No Primary Instructions Print Language: Nepalese Discharge Orders/Prescriptions Prescriptions: New ciprofloxacin HCl [Cipro] 500 mg tablet 500 mg PO BID Qty: 10 0RF oxycodone 5 mg tablet 5 mg PO Q6H PRN (Reason: pain) 3 Days Qty: 14 0RF Continued hydrocodone-acetaminophen 5-325 mg tablet 1 tab PO Q4H PRN PRN (Reason: Pain) 2 Days Qty: 10 0RF naproxen 500 mg tablet 500 mg PO BID Qty: 14 0RF Referrals / Follow Up: Jose Lam MD [Med Staff - Active Staff] - Care Physician,No Primary [Primary Care Provider] - Disposition Disposition (needs filled in before D/C Order can be placed): Home, Self Care 01/26/25 1352Jose Lam MD CC: No Primary Care Physician ~ Signed [facility]07-18-2025 History and physical note [facility] Medical Records Department [address] [place] [address] History & Physical Exam 01/26/25 0705 MR#: [id number] Acct: [id number] Name: CHEPE MADISON Doris Rep #:[id number] : 1970 54 From: Jose Lam MD PCP: Care Physician,No Primary Status :[facility] Location: [address] - General General Date of Service: 01/26/25 Chief Complaint: Right kidney stone kidney stone HPI Narrative CHEPE MADISON, is a 54 M who presents for treatment of the kidney stone with ureteroscopy laser lithotripsy and stent placement on the [facility] Medical History Wears glasses Wears dentures Injury of head and neck Heartburn Shortness of breath on exertion Leg cramps Smoker Home Medications ?Medication ?Instructions ?Recorded ?Last Taken ?Type hydrocodone-acetaminophen 5-325mg 1 tab PO Q4H PRN PRN Pain 2 days 12/21/24 Unknown Rx 5mg-325mg #10 TABLETS naproxen 500 mg tablet 500 mg PO BID #14 tabs 12/21 Unknown Rx Allergy/AdvReac Type Severity Reaction Status Date / Time No Known Allergies Allergy Verified 01/25/25 11:48 Surgical History (Updated 01/25/25 @ 11:55 by Shilpa Foster) History of exploratory laparotomy Social History Smoking Status: Current every day smoker tobacco type: cigarettes 01/26/25 07 Cosigner Signature (if applicable): CC: Dr. Jose Lam MD; No Primary Care Physician~ Signed ADDENDUM by Dr. Jose Lam MD on 01/26/25 at 1348 Addendum procedure changed to right ESWL to treat stont. pt agreeable. 01/26/25 1348 Cosigner Signature (if applicable): cc: Dr. Jose Lam MD; No Primary Care Physician ~* Signed [facility]07-18-2025 [facility] Medical Records Department [address] [place] [address] History Physical Exam 01/26/25 07 MR#: [id number] Acct: [id number] Name: CHEPE MADISON Doris Rep #: [id number] : 1970 54 From: Jose Lam MD PCP: Care Physician,No Primary Status:[facility] Location: [address] - General General Date of Service: 01/26/25 Chief Complaint: Right kidney stone kidney stone HPI Narrative CHEPE SMITHYDER, is a 54 M who presents for treatment of the kidney stone with ureteroscopy laser lithotripsy and stent placement on the [facility] Medical History Wears glasses Wears dentures Injury of head and neck Heartburn Shortness of breath on exertion Leg cramps Smoker Home Medications ???Medication ???Instructions ???Recorded ???Last Taken ???Type hydrocodone-acetaminophen 5-325mg 1 tab PO Q4H PRN PRN Pain 2 days 12/21/24 Unknown Rx 5mg-325mg #10 TABLETS naproxen 500 mg tablet 500 mg PO BID #14 tabs 12/21/24 Un known Rx Allergy/AdvReac Type Severity Reaction Status Date / Time No Known Allergies Allergy Verified 01/25/25 11:48 Surgical History (Updated 01/25/25 @ 11:55 by Shilpa Foster) History of exploratory laparotomy Social History Smoking Status: Current every day smoker tobacco type: cigarettes 01/26/25 07 Cosigner Signature (if applicable): CC: Dr. Jose Lam MD; No Primary Care Physician Signed ADDENDUM by Dr. Jose Lam MD on 01/26/25 at 1348 Addendum procedure changed to right ESWL to treat stont. pt agreeable. 01/26/25 1348 Cosigner Signature (if applicable): cc: Dr. Jose Lam MD; No Primary Care Physician * [facility] Radiology Diagnostic study note [facility] Imaging Services [address] [place] [address] Abdomen Single View MR#: [id number] Acct: [id number] Name: CHEPE MADISON Rep #: [id number] : 1970 M 54 From: Lachelle Rene MD PCP: Care Physician,No Primary Status: [facility] CLI Study:Abdomen Single View Date of Exam: 01/24/25 Exam# [id number] Ordering Dr: Pepper Lam MD EXAM: XR Abdomen, 1 View CLINICAL INDICATION: CALCULUS OF URETER TECHNIQUE: Frontal supine view of the abdomen/pelvis. COMPARISON: No relevant prior studies available. FINDINGS: GASTROINTESTINAL TRACT: Fecal retention in the colon consistent with constipation. No dilation. BONES/JOINTS: Unremarkable. No acute fracture. OTHER FINDINGS: 4 mm calculus noted on recent CT dated 12/21/2024 appears to progress to the lower aspect. RAD/Abdomen Single View IMPRESSION: 1. Fecal retention in the colon consistent with constipation. 2. 4 mm calculus noted on recent CT dated 12/21/2024 appears to progress to thelower aspect. Reading Location: [facility] CC: Dr. Jose Lam MD; No Primary Care Physician ~ Country Director: Signed [facility]06-12-2025 Radiology Diagnostic study note [facility] Imaging Services [address] [place] [address] Abdomen/Pelvis without Cont MR#: [id number] Acct: [id number] Name: CHEPE MADISON Rep #: [id number] : 1970 M 54 From: Ricardo Hein MD PCP: NOT,DEFINED Status: PRE ER Study:Abdomen/Pelvis without Cont Date of Exa m: 12/21/24 Exam# [id number] Ordering Dr: Shayy Jimenez DO PROCEDURE: ABDOMEN/PELVIS WITHOUT CONT 12/21/2024 REASON FOR EXAM: RIGHT FLANK PAIN TECHNIQUE: Abdomen and pelvis CT without intravenous contrast. Noncontrast technique limits evaluation of the abdominal and pelvic viscera. Coronal and Sagittal reconstruction series were provided. One or more dose reduction techniques were used (e.g., Automated exposure control, adjustment of the mA and/or kV according to patient size, use of iterative reconstruction technique). Dose report: CTDI L volume: 7.91 mGy. DLP: 426.88 PATIENT PREPARATION: Per protocol ORAL CONTRAST TYPE: None. COMPARISON: None FINDINGS: Lung bases: Unremarkable Liver: Hepatomegaly. Gallbladder: Unremarkable Spleen: Unremarkable Pancreas: Normal size. No surrounding inflammation. Adrenals: Unremarkable Kidneys: Mild degree of right hydronephrosis. Tiny nonobstructive bilateral intrarenal calculi moreprominent on the right side. Minimally dilated proximal right ureter due to a 4.3 mm calculus in the midportion of the right ureter. Bladder: The urinary bladder is empty. Bowel: Colonic diverticulosis without diverticulitis. Appendix: Unremarkable Lymph nodes: Unremarkable. Vasculature: Mild diffuse atherosclerotic calcifications are noted. Peritoneum / Retroperitoneum: No retroperitoneal lymph nodes. Bones: Unremarkable CT/Abdomen/Pelvis without Cont IMPRESSION: Hepatomegaly. Nonobstructive bilateral intrarenal calculi. Mild degree of right hydronephrosis and proximal right ureteral dilatation due to a 4.3 mm calculusin the midportion of the right ureter. Reading Location: [facility] CC: DEFINED NOT; Dr. Vlad Jimenez DO ~ Country Director: Signed [facility] Author Leidy Rock [facility] Note Date/Time January 26, 2025 3:23 pm [facility] Medical Records Department [address] [place] [address] Anesthesia Postop Eval I 01/26/25 1522 MR#: [id number] Acct: [id number] Name: CHEPE MADISON Rep #:[id number] : 1970 54 From: Leidy fiore CRNA PCP: Care Physician,No Primary Status :[facility] Y Race: C Location: [place] [address] Anesthesia: Postop Eval I Current Vital Signs Temperature: 97 F Pulse Rate: 84 Blood Pressure: 108/66 Respiratory Rate: 16 Pulse Ox: 99 Oxygen Delivery Method: Room Air Assessment Airway patent: Yes Spontaneous unlabored respirations: Yes Mental status: Awake and Calm nausea: No Vomiting: No Anesthesia Complication: No Fluid Hydration Crystalloid volume administer (ml): 800 Total IV fluid infused: 800 Progress Note Anesthesia document: Postop Eval 1 completed: Yes 01/26/251522 <Electronically signed by Leidy feng CRNA> Date _ Leidy Rock CRNA Cosigner Signature: Date CC: ~ Signed [facility] Work Phone: Evaluation noteNo assessment information available [facility] Work Phone: Reason for referral (narrative)No reason for referral information availableWUniversity [facility]als [facility] Work Phone: Chief Complaint and Reason for Visit Chief Complaint Admit Date kidneys December 21, 2024 9:41 am Chief Complaint Admit Date kidneys December 21, 2024 9:41 am CALCULUS OF URETER January 24, 2025 3:54 pm Advance Directives No Advanced Directives Records Found Advance Directive Response Recorded Date/ Time Do you have a Healthcare Power of Systems Engineer? No December 21, 2024 9:54am Advance Directive Response Recorded Date/ Time Do you have a Healthcare Power of Systems Engineer? No December 21, 2024 9:54am Do you have a Healthcare Power of Systems Engineer? No January 25, 2025 11:49am Summary Purpose Family History No Family History Records Found Additional Source Comments Care Teams (unrecognized sec tion and content) Team Status: Active Member Role Status Dates No Primary Care Physician Primary Care Provider Active Team Status: Inactive Member Role Status Dates Dr. Vlad Jimenez DO Emergency Provider Active S tart: December 21, 2024 End: December 21, 2024 No Primary Care Physician Primary Care Provider Active Start: December 21, 2024 End: December 21, 2024 Team Status: Active Member Role/Relationship Status Dates No Primary Care Physician Primary Care Provider Active Team Status: Inactive Member Role/Relationship Status Dates Dr. Vald Jimenez DO Attending Provider Active S tart: December 21, 2024 End: December 21, 2024 Dr. Vlad Jimenez DO Emergency Provider Active S tart: December 21, 2024 End: December 21, 2024 No Primary Care Physician Primary Care Provider Active Start: December 21, 2024 End: December 21, 2024 Team Status: Active Member Role/Relationship Status Dates No Primary Care Physician Primary Care Provider Active Start: January 24, 2025 Dr. Jose Lam MD Attending Provider Active Start: January 24, 2025 Dr. Jose Lam MD Referring Provider Active Start: January 24, 2025 Team Status: Inactive Member Role/Relationship Status Dates No Primary Care Physician Primary Care Provider Active Start: January 26, 2025 End: January 26, 2025 Dr. Jose Lam MD Attending Provider Active Start: January 26, 2025 End: January 26, 2025 Dr. oJse Lam MD Referring Provider Active Start: January 26, 2025 End: January 26, 2025 Team Status: Inactive Member Role/Relationship Status Dates No Primary Care Physician Primary Care Provider Active Start: January 24, 2025 End: January 24, 2025 Dr. Jose Lam MD Attending Provider Active Start: January 24, 2025 End: January 24, 2025 Dr. Jose Lam MD Referring Provider Active Start: January 24, 2025 End: January 24, 2025 Goals (unrecognized section and content) Goals may be documented in a n alternate section (unrecognized sect ion and content) No Status Records Found INFORMATION SOURCE (unrecogn ized section and content) DATE CREATED AUTHOR 02/03/2025 [facility] FOR RECORDS PERTAINING TO PATIENTS WHO ARE OR HAVE BEEN ENROLLED IN A CHEMICAL DEPENDENCY/SUBSTANCEABUSE PROGRAM, SOME INFORMATION MAY BE OMITTED. This clinical summary was aggregated from multiple sources. Caution should be exercised in using it in the provision of clinical care. This summary normalizes information from multiple sources, and as a consequence, information in this document may materially change the coding, format and clinical context of patient data. In addition, data may be omitted in some cases. CLINICAL DECISIONS SHOULD BE BASED ON THE PRIMARY CLINICAL RECORDS. [employer] provides no warranty or guarantee of the accuracy or completeness of information in this document.
[2025-02-23 07:25] LABS: Anion Gap 10 (5-15); BUN 11 mg/dL (4-19); BUN/Creat Ratio 10.7 RATIO (10-20); Calcium,Total 9.3 mg/dL (7.6-11.0); Carbon Dioxide 27.5 mmol/L (21.0-32.0); Chloride 102 mmol/L (98-108); Estimated Creatinine Clearance 83.69 ml/min (50-250); Glucose 141 mg/dL (70-99); Potassium 3.9 mmol/L (3.3-5.1)
--- NOTE | 2025-02-23 08:16 | EX.ED.DYSGE1 ---
HPI History of Present Illness Chief Complaint: Flank Pain Informant: patient Narrative Narrative: Patient is a 54-year-old male with past medical history of kidney stones. He was seen in the last 2 months secondary to this and had to have lithotripsy procedure to remove stones on the right side. He states that he was feeling much better after that procedure but last night around 11:00 developed sharp left-sided back/flank pain without report of trauma or excessive activity. He states the pain came on suddenly and then also improved suddenly. However the improvement only lasted approximately 5 minutes and then the sharp pain returned once again and has been persistent. He denies any hematuria or dysuria. He states that this pain feels similar nature to his previous bout of kidney stones and with concern for that once again presents for evaluation [facility] Medical History Wears glasses Wears dentures Injury of head and neck Heartburn Shortness of breath on exertion Leg cramps Smoker Home Medications ?Medication ?Instructions ?Recorded ?Last Taken ?Type hydrocodone-acetaminophen 5-325mg 1 tab PO Q4H PRN PRN Pain 2 days 12/21/24 Unknown Rx 5mg-325mg #10 TABLETS naproxen 500 mg tablet 500 mg PO BID #14 tabs 12/21/24 Unknown Rx cephalexin 500 mg capsule 500 mg PO TID 7 days #21 caps 02/23/25 Unknown Rx ketorolac 10 mg tablet 10 mg PO 4X/DAY PRN pain 5 days 02/23/25 Unknown Rx #20 tabs ondansetron 4 mg disintegrating 4 mg PO TID PRN nausea and 02/23/25 Unknown Rx tablet vomiting #21 tabs oxycodone-acetaminophen 5 mg-325 1 tab PO Q6H PRN pain 5 days #20 02/23/25 Unknown Rx mg tablet (Endocet) tabs tamsulosin 0.4 mg capsule (Flomax) 0.4 mg PO DAILY 14 days #14 caps 02/23/25 Unknown Rx Allergy/AdvReac Type Severity Reaction Status Date / Time No Known Allergies Allergy Verified 02/23/25 06:24 Surgical History History of exploratory laparotomy Social History Smoking Status: Current every day smoker tobacco type: cigarettes ROS ROS ED Constitutional Constitutional ED: Denies chills or fever(s) ENT ENT ED: Denies sore throat Cardiovascular Cardiovascular: Denies chest pain Respiratory/Chest Respiratory/Chest: Denies cough or dyspnea Gastrointestinal Gastrointestinal: Reports abdominal pain; Denies diarrhea, nausea or vomiting Genitourinary Genitourinary ED: Denies dysuria or hematuria Musculoskeletal Musculoskeletal: Reports back pain and other Details: Positive left flank pain ; Denies myalgias Integumentary Denies rash Neurologic Neurologic: Denies headache(s) Hematologic/Lymphatic Hematologic/Lymphatic: Denies easy bleeding or easy bruising EXAM Physical Exam Const Vital Signs: 02/23/25 06:24 Temperature 97.5 F L Temperature Source Oral Pulse Rate 83 Respiratory Rate 16 Blood Pressure 133/81 H Blood Pressure Mean 98 Pulse Ox 97 Positive well nourished and well developed General Appearance ED: well developed; Negative for pallor HEENT HEENT Narrative: Normocephalic atraumatic Eyes PERRL and EOMs intact bilaterally General Eye ED: Negative for scleral icterus Neck supple Resp normal respiratory effort Resp Narrative: Breath sounds are diminished throughout with diffuse expiratory wheeze consistent with history of smoking but no signs of respiratory distress Cardio regular rate and regular rhythm Rate: other Other Details: Heart is regular rate and rhythm without murmurs rubs or gallop Radial and carotid pulses are equal and symmetric GI non-distended and no masses GI Narrative: Abdomen is soft and nondistended with normal active bowel sounds. Patient has pain with palpation along the left lateral abdomen without voluntary guarding or rigidity. No pulsatile mass or fluid wave. Auscultation: normoactive bowel sounds Palpation: soft Back/Spine Back/Spine Narrative: Positive left CVA pain noted Extremity normal to inspection Neuro oriented x3, CN's II-XII intact bilaterally and no sensory deficits noted Sensorium / Orientation: alert Motor Exam: strength 5/5 throughout Psych mental status grossly normal Skin no rashes or lesions noted Skin Narrative: No overlying soft tissue changes to suggest trauma or infection General Skin Exam: Negative for jaundice or pallor MDM MDM MDM Narrative Medical decision making narrative: Patient arrived to the ER with stable vitals. He reported sudden onset of left-sided flank/abdominal pain that was sharp in nature. He denied any recent trauma or excessive activity. He states he has been no dysuria or hematuria. Differential diagnosis is for UTI versus pyelonephritis versus kidney stone. As his previous CT scan from December showed bilateral stones within the kidney there is high likelihood that his pain today is secondary to a moving left-sided kidney stone. Secondary to his basic labs were obtained with a noncontrast CT. workup reveals no signs of acute kidney injury. CT scan confirms a 4 mm left ureteral stone causing obstruction with hydronephrosis. The radiologist states hydronephrosis is severe but as he does not have signs of SUZANNA there is no need for emergent urology intervention. The patient was given IV fluids as well as Toradol. He states this helped somewhat with the pain but it is still present and therefore morphine was added. At this time his urine sample is still pending as well as his response to the morphine. I feel that if his pain reduces to an acceptable level then he will be safe for discharge with symptomatic care and outpatient urology follow-up. The patient had near complete resolution of pain after administration of morphine and therefore he is not SUZANNA and he is not hypotensive or febrile to suggest sepsis and he is no longer in intractable pain and therefore safe for discharge History & Record Review Discussion w/independent historian: Patient Lab Data Attestation: I reviewed the patient's lab results. Labs: Laboratory Results - last 24 hr 02/23/25 06:50 WBC 11.4 H RBC 4.11 L Hgb 13.3 Hct 38.7 L MCV 94.2 H MCH 32.4 H MCHC 34.4 RDW Std Deviation 40.7 RDW Coeff of Cecilia 11.8 Plt Count 247 MPV 9.2 Immature Gran % (Auto) 0.700 Neut % (Auto) 84.6 H Lymph % (Auto) 7.5 L Moody % (Auto) 6.6 Eos % (Auto) 0.0 Baso % (Auto) 0.6 Absolute Neuts (auto) 9.6 H Absolute Lymphs (auto) 0.85 Nucleated RBC % 0 Sodium 139 Potassium 3.9 Chloride 102 Carbon Dioxide 27.5 Anion Gap 10 BUN 11 Creatinine 1.06 Estim Creat Clear Calc 83.69 Est GFR (MDRD) Non-Af 84 BUN/Creatinine Ratio 10.7 Glucose 141 H Calcium 9.3 Radiography Diagnostic Testing: Clinical Impression(s) from Imaging Studies Abdomen/Pelvis CT 02/23/25 06:52 IMPRESSION: [place] 2 mm stones at the middle and lower pole of the left kidney. A 4 mm obstructing stone in the left ureter proximally at L3 level causing severe left hydronephrosis. Left sigmoid colon diverticulosis with no evidence of acute diverticulitis. Reading Location: [facility] Discharge Plan Triage Chief Complaint: Flank Pain ED Provider: John Levine Dx/Rx/DC Orders Clinical Impression: Kidney stone, Renal colic, Tobacco use Instructions: ED Kidney Stone with Pain Prescriptions: New ketorolac 10 mg tablet 10 mg PO 4X/DAY PRN (Reason: pain) 5 Days Qty: 20 0RF ondansetron 4 mg tablet,disintegrating 4 mg PO TID PRN (Reason: nausea and vomiting) Qty: 21 0RF cephalexin 500 mg capsule 500 mg PO TID 7 Days Qty: 21 0RF tamsulosin [Flomax] 0.4 mg capsule 0.4 mg PO DAILY 14 Days Qty: 14 0RF oxycodone-acetaminophen [Endocet] 5-325 mg tablet 1 tab PO Q6H PRN (Reason: pain) 5 Days Qty: 20 0RF No Action hydrocodone-acetaminophen 5-325 mg tablet 1 tab PO Q4H PRN PRN (Reason: Pain) 2 Days Qty: 10 0RF naproxen 500 mg tablet 500 mg PO BID Qty: 14 0RF Primary Care Provider: Care Physician,No Primary Referrals: Jose Lam MD [Med Staff - Active Staff] - Care Physician,No Primary [Primary Care Provider] - Activity Restrictions/Additional Instructions: Please keep yourself well-hydrated and take the prescribed medication as directed to help control your pain. If you develop a fever over 100.4 or your pain is not controlled with the prescribed medication please return to the ER for repeat evaluation. Otherwise follow-up with urology to discuss further treatment options. Print Language: Icelandic Disposition Disposition: Home, Self Care
[2025-02-23 08:24] VITALS: BP 130/78; PULSE 78; RESP 18; O2SAT 93
[2025-02-23 09:16] VITALS: BP 129/77; PULSE 76; RESP 18; TEMP 37.1; O2SAT 92
== END 2025-02-23 09:43 | disposition home or self-care (01) ==
PROVIDERS: Emergency Provider Emergency Medicine; Visit Provider Emergency Medicine
DX: N13.2 Hydronephrosis with renal and ureteral calculous obstruction (principal); F17.210 Nicotine dependence, cigarettes, uncomplicated; N23 Unspecified renal colic
CPT/HCPCS: 74176; 80048; 85025; 96361; 96374; 96375; 99283; A4216; J2405